=== PATIENT | male | born 1940 | race Caucasian/White ===

== ENCOUNTER → 2016-02-27 | Outpatient (CLI) | payer BC ==
[~2016-02-27] MED LIST: ASPI81TA28 PO; BIMA0.01 OPB; CHOL2000 PO; CIPR-255 PO; CLC100 PO; DTR5 PO; DUTA0.5C PO; MULTTAB58 PO; OXYC7.5T62 PO; TAMS0.4C59 PO
[2016-02-27 19:58] LABS: BASO % 0.2 %; BASO ABS # 0.01 K/uL (0-0.2); COMPLETE YES; EOS % 3.1 %; HEMATOCRIT 36.4 % (42-52); IG% 0.6 %; LYMPH % 32.4 %; LYMPH ABS # 1.56 K/uL (1.2-3.4); MEAN CELL VOLUME 92.6 fL (80-100); MEAN CORPUSCULAR HEMOGLOBIN 32.1 pg (25-34); MEAN CORPUSCULAR HGB CONC 34.6 g/dl (32-36); MEAN PLATELET VOLUME 9.3 fL (7.4-10.4); MONO % 7.3 %; NEUT % 56.4 %; PLATELET COUNT 108 K/uL (130-400); RED BLOOD COUNT 3.93 M/uL (4.7-6.1); WHITE BLOOD COUNT 4.82 K/uL (4.8-10.8)
[2016-02-27 20:06] LABS: ALT/SGPT 67 U/L (12-78); AST/SGOT 36 U/L (15-37); BLOOD UREA NITROGEN 23 mg/dl (7-18); BUN/CREATININE RATIO 22.9 (10-20); CALCIUM 9.1 mg/dl (8.5-10.1); CARBON DIOXIDE 29 mmol/L (21-32); CHLORIDE 100 mmol/L (98-107); GLUCOSE 95 mg/dl (70-99); POTASSIUM 4.4 mmol/L (3.5-5.1); SODIUM 137 mmol/L (136-145)
[2016-02-27 20:10] LABS: ALB/GLOB RATIO 1.1 (0.9-2); ALKALINE PHOSPHATASE 76 U/L (45-117); PROSTATE SPECIFIC ANTIGEN 0.122 ng/ml (0.000-4.000)
--- NOTE | 2016-03-01 11:16 | CODING QUERY NO DIAGNOSIS ---
: 1940 TREATMENT RENDERED WITHOUT A DIAGNOSIS To promote full compliance with coding requirements relating to patient care, physician participation is requested in all cases of label coder uncertainty. Please assist us with providing a diagnosis/symptom for the test(s) below: A diagnosis/symptom was not documented on your Order. A valid diagnosis/symptom is required to bill all insurances. Please remember that we are unable to code a diagnosis of rule out, probable, possible, questionable, or suspected. Tests that require a diagnosis: DOS: 02/27/16 * Erythrocyte Sedimentation Rate DIAGNOSIS: * SANDRA 9 Order Set DIAGNOSIS: * Comprehensive Metabolic Panel DIAGNOSIS: * Prostate Specific Antigen DIAGNOSIS: * CBC With Auto Differential DIAGNOSIS: Provider Signature: Date: Thank you Brie [facility] Information Management Once completed, please kindly fax back to [phone] For questions please call [phone]
[2016-03-05 04:44] LABS: ANTI-CENTROMERE AB <1.0 NEG AI (<1.0 NEG); ANTI-SS-A <1.0 NEG AI (<1.0 NEG); ANTI-SS-B <1.0 NEG AI (<1.0 NEG); DNA ds CRITHIDIA NEGATIVE (NEGATIVE); Sm Antibody <1.0 NEG AI (<1.0 NEG)
--- NOTE | 2016-03-08 11:32 | CODING QUERY MEDICAL NECESSITY ---
SUPPORTING DIAGNOSIS NEEDED Dr. Indira Back, A supporting diagnosis is required for the test/procedure performed on this patient in order for us to be reimbursed by the patient's insurance. Please provide a supporting diagnosis for the following test/procedure listed below next to the test name along with your signature. *If there is no additional diagnosis for this patient that would support the following test/procedure please document that below next to the test/procedure. Test(s)/Procedure(s) that require a supporting diagnosis: * [id number] PSA DIAGNOSIS: DATE OF SERVICE: 02/27/16 Provider Signature: Date: Thank you Mando Bang [facility] Information Management Once completed, please kindly fax back to [phone] For questions please call [phone]
== END | disposition home or self-care (01) ==
LOC: C.LABSPEC 16:16
PROVIDERS: ATTEND Internal Medicine
DX: L30.8 Other specified dermatitis (principal); C61 Malignant neoplasm of prostate

== ENCOUNTER → 2016-04-03 | Outpatient (CLI) | payer BC ==
[~2016-04-03] MED LIST changes: -DUTA0.5C PO; -TAMS0.4C59 PO
== END | disposition home or self-care (01) ==
LOC: C.LABSPEC 12:28
PROVIDERS: ATTEND Internal Medicine
DX: Z12.11 Encounter for screening for malignant neoplasm of colon (principal)

== ENCOUNTER 2016-04-15 06:54 | Inpatient (IN) | payer BC, OTHER ==
[2016-03-31 10:57] VITALS: BMI 27.0
--- NOTE | 2016-03-31 11:33 | PAT Medication Instructions ---
Service Date Mar 31, 2016. Current Home Medication List Aspirin (Aspirin Ec), 81 MG PO HOLD Bimatoprost (Lumigan), 1 DROPS OPB HS Cholecalciferol (Vitamin D3), 1 CAP PO QAM Multiple Vitamin (Multivitamin), 1 TAB PO QAM Medication Instructions For Your Scheduled Surgery - Hold the following medications 7-10 days prior to surgery per surgeon's instructions: Aspirin (Aspirin Ec), 81 MG PO HOLD - Hold the following medications the morning of surgery: Cholecalciferol (Vitamin D3), 1 CAP PO QAM Multiple Vitamin (Multivitamin), 1 TAB PO QAM - Take the following medications as scheduled the night before surgery: Bimatoprost (Lumigan), 1 DROPS OPB HS Nothing to eat or drink after midnight If you have any questions please call us at [phone] or [phone] or [phone]
--- NOTE | 2016-03-31 12:16 | DIAGNOSTIC IMAGING REPORT ---
CHEST 2 VIEWS ROUTINE CLINICAL HISTORY: Preoperative evaluation. COMPARISON STUDY: Chest radiograph September 22, 2015. FINDINGS: A dual lead left subclavian pacemaker is in place. Mild cardiomegaly is unchanged. There is no evidence of pulmonary edema. There is no consolidation to suggest pneumonia. Linear right basilar opacity is suggestive of atelectasis. IMPRESSION: 1. No acute cardiopulmonary findings. 2. Stable mild cardiomegaly. Electronically signed by: Cruzito Miller M.D. 03/31/2016 12:15 PM Dictated Date/Time: 03/31/2016 12:14 PM
[2016-03-31 12:22] LABS: URINE APPEARANCE CLEAR (CLEAR); URINE BILIRUBIN NEG (NEG); URINE COLOR YELLOW; URINE NITRITE NEG (NEG); UROBILINOGEN NEG (NEG)
[2016-03-31 12:23] LABS: BASO % 0.2 %; BASO ABS # 0.01 K/uL (0-0.2); COMPLETE YES; EOS % 3.5 %; HEMATOCRIT 36.5 % (42-52); IG% 0.2 %; LYMPH % 31.2 %; LYMPH ABS # 1.25 K/uL (1.2-3.4); MEAN CELL VOLUME 91.5 fL (80-100); MEAN CORPUSCULAR HEMOGLOBIN 32.1 pg (25-34); MEAN CORPUSCULAR HGB CONC 35.1 g/dl (32-36); MEAN PLATELET VOLUME 8.9 fL (7.4-10.4); MONO % 5.2 %; NEUT % 59.7 %; PLATELET COUNT 104 K/uL (130-400); RED BLOOD COUNT 3.99 M/uL (4.7-6.1); WHITE BLOOD COUNT 4.01 K/uL (4.8-10.8)
[2016-03-31 12:25] LABS: MANUAL MICROSCOPIC REQUIRED? NO; REVIEW REQ? NO
[2016-03-31 12:42] LABS: BUN/CREATININE RATIO 23.1 (10-20); CALCIUM 9.2 mg/dl (8.5-10.1); CREATININE 0.94 mg/dl (0.60-1.40); POTASSIUM 4.3 mmol/L (3.5-5.1)
--- NOTE | 2016-04-08 07:51 | HISTORY & PHYSICAL EXAMINATION ---
DATE OF ADMISSION: 04/15/2016 PREOPERATIVE EVALUATION NOTE A 75-year-old male scheduled to undergo a robotic prostatectomy on 04/15/2016. He has been diagnosed with prostate cancer. His medical problems include: 1. 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 He underwent chemotherapy. The last chemotherapy was administered on 10/31/2013 and he has been in remission. He sees Dr. Jack Mccray. 2. History of second-degree AV block Mobitz II, requiring a permanent pacemaker. This was done in 2005. He had a battery changed on his pacer in [address] Hunt. 3. Degenerative disk disease of the lumbar spine. He did require surgery in the remote past. 4. 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 5. Diagnosis of prostate cancer established on 09/04/2015. He has been on Lupron and he is scheduled for surgery. 6. History of glaucoma. He was treated with Lumigan in the past, but the medication is on hold at the present time. 7. History of basal cell carcinomas. He has had multiple Mohs procedures in the past. CURRENT MEDICATIONS: Include only vitamin D 2000 international units daily. He has had a rash, which has been chronic. He has had multiple dermatology evaluations. He has had a skin biopsy, the etiology of which is not definitely determined. Overall, he has been doing well. Denied any headache or dizziness or lightheadedness. He wears glasses. No chest pain, pressure or tightness. No shortness of breath. No cough. No abdominal pain, no nausea, and no vomiting. No problem with his bowel movements. No melena and no rectal bleeding. He is up at night to urinate on multiple occasions. Denied any swelling in his ankles. PHYSICAL EXAMINATION: GENERAL: Well developed, in no distress. His recorded weight is 85 kg, height 175.3 cm, and BMI 27.7. VITAL SIGNS: Blood pressure 122/70, pulse 60 and regular, and temperature 98.3. SKIN: Warm and dry. He does have an erythematous rash, especially on his back, stable. He also has multiple areas of keratosis. HEENT: He wears glasses. Normal oronasal and pharyngeal mucosa. He does have cerumen accumulation in his external ear canals. He has had prior cataract surgeries. NECK: Supple. Nontender. No adenopathy. No thyromegaly. No JVD. Normal carotid pulses. No carotid bruit. CHEST: Pacemaker in place. HEART: Regular heart sounds. No evident murmur, rub, or gallop. LUNGS: Clear. ABDOMEN: Soft and nontender without organomegaly or masses. BACK: No spinal tenderness. Surgical scar. EXTREMITIES: No edema, clubbing, or cyanosis. Onychomycosis. Absent right dorsalis pedis pulse. The rest of his pedal pulses were normal. NEUROLOGIC: He is alert and oriented. There is no evidence of any deficit. LABORATORY TESTS: WBC count 4010, hemoglobin 12.8, hematocrit 36.5, and platelet count 104,000. Sodium 138, potassium 4.3, chloride 103, CO2 of 27, BUN 22, creatinine 0.94, glucose 96, and calcium 9.2. His urinalysis was completely normal. His electrocardiogram was done at [facility] in [place] on 03/26/2016 and showed a paced rhythm. AV sequential pacemaker. No change compared to prior electrocardiograms. His chest x-ray showed no acute cardiopulmonary findings. He has a stable cardiomegaly. ASSESSMENT: 1. Preoperative evaluation. 2. Carcinoma of the prostate. The patient is scheduled for a prostatectomy on 04/15/2016. 3. History of B-cell chronic small cell leukemia, status post chemotherapy. He is in remission. 4. History of heart block, requiring pacemaker. 5. History of glaucoma. 6. 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 7. Keratosis. 8. History of basal cell carcinoma. 9. Chronic rash. Prior evaluation has been nonrevealing. 10. Thrombocytopenia. Chronic. Still in a safe range. PLAN: 1. All his preoperative tests have been reviewed. 2. He does have mild thrombocytopenia, but his platelet count remains over 100,000. Dr. Mccray is aware of his upcoming surgery. No treatment is needed at this point. 3. Based on his examination and all his laboratory tests, the patient is in a stable medical condition and I do not see any contraindication to his anticipated surgery.
[2016-04-15] VITALS (8 sets, daily range): BP systolic 127–172; BP diastolic 63–81; PULSE 59–69; TEMP 36.4–36.9; O2SAT 95–98; Ht 175.3 cm; Wt 85.0 kg
[~2016-04-15] VITALS: Ht 175.3 cm; Wt 85.0 kg
[~2016-04-15 06:54] MED LIST changes: +CEFAZOLIN 2000 MG/60 ML D5W 60 ML IV SCH; -CIPR-255 PO; -CLC100 PO; -DTR5 PO; +HEPARIN SOD 5000 UNIT/0.5 ML CARP SQ SCH; +LACTATED RINGER'S 1000ML 1,000 ML IV SCH; -OXYC7.5T62 PO
[2016-04-15] MEDS ORDERED: PROPOFOL IV EMULSION 10 MG/ML 20 ML VIAL IV ONE (07:36)
[2016-04-15] MEDS ORDERED: SUCCINYLCHOLINE CHLORIDE 20 MG/ML 10 ML VIAL IV ONE (07:36)
[2016-04-15] MEDS ORDERED: METOCLOPRAMIDE HCL INJ 5 MG/ML 2 ML VIAL ONE (07:36)
[2016-04-15] MEDS ORDERED: RANITIDINE HCL 25 MG/ML INJ ONE (07:36)
[2016-04-15] MEDS ORDERED: LIDOCAINE HCL 2% 2 ML VIAL (20MG/ML) ONE (07:36)
[2016-04-15] MEDS ORDERED: ONDANSETRON INJ 2 MG/ML 2 ML VIAL ONE (07:36)
[2016-04-15] MEDS ORDERED: ROCURONIUM BROMIDE 10 MG/ML 5 ML VIAL ONE ×2 (07:36→10:52)
[2016-04-15] MEDS ORDERED: FENTANYL CITRATE INJ 50 MCG/1 ML 2 ML VIAL ONE (07:36)
[2016-04-15] MEDS ORDERED: DEXAMETHASONE SOD INJ 4 MG/ML VIAL ONE (07:36)
--- NOTE | 2016-04-15 07:46 | History & Physical Bridge Note ---
H&P Re-Evaluation Bridge Note: I have examined the patient, reviewed the History & Physical and in the interval since the performance of the History & Physical I have noted the following changes of clinical significance: No changes noted
[2016-04-15] MEDS ORDERED: MIDAZOLAM HCL 1 MG/ML 2ML VIAL ONE (08:12)
[2016-04-15] MEDS ORDERED: LACTATED RINGER'S 1000ML 1,000 ML IV PRN (08:26)
[2016-04-15] MEDS ORDERED: BUPIVACAINE/EPINEPHRINE 0.5% MPF 1:200,000 30 ML VIAL ONE (08:29)
[2016-04-15] MEDS ORDERED: FENTANYL CITRATE INJ 50 MCG/1 ML 2 ML VIAL IV PRN (08:30)
[2016-04-15] MEDS ORDERED: HYDROmorphone INJ 1 MG/ML SYR IV PRN ×2 (08:30→12:15)
[2016-04-15] MEDS ORDERED: ONDANSETRON INJ 2 MG/ML 2 ML VIAL IV PRN ×2 (08:30→12:15)
[2016-04-15] MEDS ORDERED: MoRPHine SULFATE 2 MG/ML CARP ONE ×3 (08:59→09:35)
[2016-04-15] MEDS ORDERED: LABETALOL HCL IV 5 MG/ML 20ML ONE (09:44)
[2016-04-15] MEDS ORDERED: GLYCOPYRROLATE INJ 0.2 MG/ML VIAL ONE (09:46)
[2016-04-15] MEDS ORDERED: NEOSTIGMINE METHYLSULFATE 5 MG/5 ML SYR ONE (09:46)
[2016-04-15] MEDS ORDERED: METHYLENE BLUE 1% 10 ML VIAL ONE (10:10)
[2016-04-15] MEDS ORDERED: FLOSEAL HEMOSTATIC MATRIX 10ML TOP ONE (11:32)
[2016-04-15] MEDS: LACTATED RINGER'S 1000ML 1,000 ML IV SCH ×2 (12:04→20:49)
[2016-04-15] MEDS ORDERED: OXYBUTYNIN CHLORIDE 5 MG TAB PO PRN (12:15)
[2016-04-15] MEDS ORDERED: KETOROLAC TROMETHAMINE 15 MG/ML VIAL IV PRN (12:15)
[2016-04-15] MEDS ORDERED: OXYCODONE/ACETAMINOPHEN 7.5-325 TAB PO PRN (12:15)
--- NOTE | 2016-04-15 12:23 | [facility] Post Operative Brief Note ---
Immediate Operative Summary Operative Date Apr 15, 2016. Pre-Operative Diagnosis Bebeto 4+3 Prostate Cancer Post-Operative Diagnosis Same as pre-operative Procedure(s) Performed Robotic assisted laparoscopic radical retropubic prostatectomy Surgeon Dr. Zackary Rutledge MD Talent Rep Surgeon(s) Liza Rodriguez, RN, VAPOR COATER Estimated Blood Loss 150 ml Findings Watertight anastomosis Specimens A. Prostate and seminal vessicles B. Periprostatic fat Drains #10 ANA LLQ, 18 fr silicone jennings, 10 cc H2O Anesthesia GAET + local Complication(s) None Disposition Recovery Room / PACU
[2016-04-15 12:36] LABS: HEMATOCRIT 33.8 % (42-52); MEAN CELL VOLUME 91.4 fL (80-100); MEAN CORPUSCULAR HEMOGLOBIN 32.2 pg (25-34); WHITE BLOOD COUNT 5.93 K/uL (4.8-10.8)
[2016-04-15 12:56] LABS: BUN/CREATININE RATIO 15.9 (10-20); CALCIUM 8.3 mg/dl (8.5-10.1); CREATININE 1.2 mg/dl (0.60-1.40); POTASSIUM 3.9 mmol/L (3.5-5.1)
--- NOTE | 2016-04-15 13:08 | Anesthesiology Progress Note ---
Anesthesia Post Op Note Date & Time Apr 15, 2016 at 13:07 Vital Signs Pain Intensity: 1 Vital Signs Past 12 Hours Date Time Temp Pulse Resp B/P Pulse Ox O2 Delivery O2 Flow Rate FiO2 04/15/16 12:50 36.7 60 14 120/61 96 Nasal Cannula 2 04/15/16 12:40 60 14 117/63 97 Nasal Cannula 2 04/15/16 12:30 60 16 123/61 100 Mask 10 04/15/16 12:20 62 16 123/66 100 Mask 10 04/15/16 12:12 37.2 60 16 128/86 98 Mask 10 04/15/16 07:54 36.5 60 18 142/69 95 Room Air Notes Mental Status: alert / awake / arousable, participated in evaluation Pt Amnestic to Procedure: Yes Nausea / Vomiting: adequately controlled Pain: adequately controlled Airway Patency, RR, SpO2: stable & adequate BP & HR: stable & adequate Hydration State: stable & adequate Anesthetic Complications: no major complications apparent Pt doing well.
[2016-04-15 13:09] LABS: MEAN CORPUSCULAR HGB CONC 35.2 g/dl (32-36); MEAN PLATELET VOLUME 8.3 fL (7.4-10.4); PLATELET COUNT 99 K/uL (130-400); PLT ESTIMATE DECREASED
--- NOTE | 2016-04-15 13:24 | OPERATIVE REPORT ---
DATE OF OPERATION: 04/15/2016 PREOPERATIVE DIAGNOSIS: Silas 4+3 prostate cancer. POSTOPERATIVE DIAGNOSIS: Same. PROCEDURE: Robot-assisted laparoscopic radical retropubic prostatectomy, bladder neck reconstructed. SURGEON: Dr. Zackary Rutledge. SAP ANALYST: YAKOV Mckoy. ANESTHESIA: General anesthesia with endotracheal intubation plus local at port sites. ESTIMATED BLOOD LOSS: 150 mL. IV FLUIDS: 1700 mL of crystalloid. DRAINS LEFT IN PLACE: Include a #10 ANA drain in the left lower quadrant and an 18 Tamazight Crump catheter to gravity drainage with 10 mL of sterile water in the balloon, silicone specimens sent to pathology as periprostatic fat, prostate plus seminal vesicles. FINDINGS: Watertight anastomosis with excellent hemostasis and no evidence of rectal injury. COMPLICATIONS: None. BRIEF HISTORY: Mr. Kimble is a pleasant 75-year-old male who I have seen as an outpatient in consultation for management of his Silas 4+3 adenocarcinoma of the prostate. He has undergone biopsy by Dr. Brady demonstrating his diagnosis of malignancy. The patient has received preoperative Lupron and his baseline voiding symptoms and urinary incontinence requiring pad use are noted. Please see H\T\P for further details. After discussion of risks and benefits and various forms of management, he has decided upon a robotic prostatectomy to manage his disease and is being admitted for this purpose. Preoperative cephalosporins and heparin were provided for antibiotic coverage and DVT prophylaxis. SCDs used as well. OPERATION AND FINDINGS: PROCEDURE: The patient was properly identified and brought to the operative suite. After identification and appropriate consent on the chart, general anesthesia with endotracheal intubation was initiated and the patient was prepped and draped in standard fashion for this procedure. time buyer-out procedure was followed. A 12 mm supraumbilical incision was made after induction of local and abdomen was entered under direct visualization using a 12 mm visual obturator. Abdomen was insufflated to 15 mmHg and normal intra-abdominal anatomy was appreciated. Ports were placed for a 4th arm robotic template including 2 left-sided 7 mm ports, 1 right-sided 7 mm robotic port and a 12 and 5 mm multimedia production assistant port. The patient was placed in Trendelenburg and robot was brought in and docked. Scarring within the pelvis from the patient's previous hernia repair was appreciated. Bladder was able to be dropped down to the level of the pubic bone without evidence of bladder injury or perforation. Prostate was defatted. Periprostatic fat was sent for pathologic analysis. The patient was noted to have significantly enlarged prostate consistent with his preoperative transrectal ultrasound findings despite the use of Lupron. Endopelvic fascia was sharply entered on both sides and blunt dissection was carried down to the level of the apex. Dorsal vein complex was skeletonized and controlled using 0 Vicryl suture in a [id number] fashion. A 30-degree down lens was used to place the bladder neck on traction and dissection was carried down until the Crump catheter was encountered in the midline. This was placed within the fourth arm and used for anterior traction. Posterior bladder neck was divided after a lack of a median lobe was ensured. Methylene blue was provided to assist with identification of the ureteral orifices, which were noted to be well removed from the bladder neck dissection and deep within the pelvis. However, due to lateral lobe impingement of the bladder, bladder neck reconstruction was required prior to completion of closure. Bladder was dropped in the posterior plane and dissection was carried out until the vas deferens and seminal vesicles were encountered in the midline. Seminal vesicles were noted to be relatively small. Rectum was dropped using cold scissors down to the level of the apex. The pedicles were skeletonized and controlled using vessel sealer on both sides. On the right side, a rim of tissue was left along the prostate gland due to the Silas 4 disease and the risk of extracapsular extension. On the left hand side, a thorough nerve sparing dissection was carried out. After dissection had been carried out to the level of the apex of the prostate attention was turned to the dorsal vein. Using a 0 degree lens, this was divided using hot scissors and urethra was skeletonized. A relatively vascular rectourethralis fibers were appreciated and divided. Prostate was freed and brought up into the abdominal cavity where it was placed into an EndoCatch bag for retrieval at the end of the case. Attention was turned to the pelvis where excellent hemostasis was appreciated. The pelvis was filled with saline irrigation and rectum was insufflated with no evidence of rectal injury. The bladder neck reconstruction was carried out using a 2-0 Vicryl suture in an interrupted fashion on the lateral aspects for an excellent aperture to the bladder neck. Using a double armed V-Loc suture circumferential running anastomosis was created with the silicone Crump catheter being visualized entering the bladder prior to completion. A 10 mL of sterile water were placed in the balloon and the bladder was tested with greater than 120 mL of irrigant and no evidence of leak. FloSeal tissue sealant was placed for additional hemostasis in the prostatic fossa. The needles were removed, needle and instrument counts were correct. Fourth arm was removed and #10 ANA drain was brought in via the fourth arm port. This was placed within the pelvis while avoiding placing it directly over the anastomosis. Robotic instruments were removed and robot was dedocked. Camera was brought in via the multimedia production assistant port to allow for removal of the strings to the EndoCatch bag via the supraumbilical incision. This was sufficiently enlarged to allow for removal of the specimen. Excess carbon dioxide gas was removed from the abdomen and ports were removed. Supraumbilical incision was closed at the level of fascia using 0 Vicryl suture on a UR-5 needle in a running fashion. A 2-0 silk was used to secure the drain in place and 4-0 Monocryl and Dermabond was used at the level of the skin for completion of the closure. After this was complete, anesthesia was reversed. The patient was transferred to recovery room in stable condition. FOLLOW-UP CARE: The patient will be admitted to the floor for standard postoperative management. I attest to the content of the Intraoperative Record and any orders documented therein. Any exceptio ns are noted below.
[2016-04-15 15:10] LABS: INR 1.1 (0.9-1.1); PROTHROMBIN TIME (PATIENT) 11.5 SECONDS (9.0-12.0)
[2016-04-15] MEDS: CEFAZOLIN IV 2,000 MG in DEXTROSE 5% 50ML 50 ML IV SCH (15:47)
[2016-04-15] MEDS: ACETAMINOPHEN 500 MG TAB PO SCH (17:39)
[2016-04-15] MEDS: HEPARIN SOD 5000 UNIT/0.5 ML CARP SQ SCH (18:53)
[2016-04-15] MEDS: DOCUSATE SODIUM 100 MG CAP PO SCH (20:48)
[2016-04-15] MEDS ORDERED: BIMATOPROST 0.01% OP SOLN 2.5 ML BTL OPB SCH (21:00)
[2016-04-16] MEDS: ACETAMINOPHEN 500 MG TAB PO SCH ×3 (00:19→12:00)
[2016-04-16] MEDS: CEFAZOLIN IV 2,000 MG in DEXTROSE 5% 50ML 50 ML IV SCH ×2 (00:19→09:28)
[2016-04-16 04:06] VITALS: BP 122/61; PULSE 60; TEMP 36.7; O2SAT 93
[2016-04-16] MEDS: LACTATED RINGER'S 1000ML 1,000 ML IV SCH (05:39)
[2016-04-16 07:45] VITALS: BP 145/71; PULSE 60; TEMP 36.8; O2SAT 93
[2016-04-16 07:59] LABS: HEMATOCRIT 28.5 % (42-52); MEAN CELL VOLUME 89.3 fL (80-100); MEAN CORPUSCULAR HEMOGLOBIN 32.3 pg (25-34); MEAN CORPUSCULAR HGB CONC 36.1 g/dl (32-36); RED BLOOD COUNT 3.19 M/uL (4.7-6.1); WHITE BLOOD COUNT 6.22 K/uL (4.8-10.8)
[2016-04-16 08:31] LABS: MEAN PLATELET VOLUME 8.5 fL (7.4-10.4); PLATELET COUNT 95 K/uL (130-400)
[2016-04-16 08:35] LABS: BUN/CREATININE RATIO 14.6 (10-20); CALCIUM 8.5 mg/dl (8.5-10.1); CREATININE 0.98 mg/dl (0.60-1.40); POTASSIUM 3.9 mmol/L (3.5-5.1)
[2016-04-16 08:47] LABS: COMPLETE YES; EOS % 0.5 %; IG% 0.3 %; LYMPH % 22.8 %; LYMPH ABS # 1.42 K/uL (1.2-3.4); MONO % 5.8 %; NEUT % 70.6 %
--- NOTE | 2016-04-16 08:57 | Progress Note ---
Subjective Date of Service: Apr 16, 2016. Subjective Pt evaluation today including: conversation w/ patient, physical exam, chart review, lab review Voiding: jennings catheter in place 75 year old POD#1 RALP Doing okay Minimal pain Tolerating clears. Ambulating and passing flatus. Jennings intact draining clear yellow urine. Abd slighlty distended- incisions intact. ANA drain intact with small amount of serosang drainage. IVF infusing. AFVSS, Labs unremarkable. Review of Systems Constitutional: No chills, No fever Eyes: No worsening of vision ENT: No hearing loss Respiratory: No cough, No shortness of breath Cardiac: No chest pain Abdomen: + pain, + see HPI, No nausea, No vomiting Male : + see HPI Neurologic: No memory loss Psychiatric: No depression symptoms Heme: No abnormal bleeding/bruising Endo: No fatigue Skin: No rash Objective Vital Signs Date Time Temp Pulse Resp B/P Pulse Ox O2 Delivery O2 Flow Rate FiO2 04/16/16 07:22 Room Air 04/16/16 04:06 36.7 60 17 122/61 93 Room Air 04/16/16 00:20 Room Air 04/15/16 23:27 36.9 59 18 130/68 95 Room Air 04/15/16 20:12 36.5 60 16 127/63 95 Room Air 04/15/16 16:44 36.5 60 17 153/64 97 Nasal Cannula 2.0 04/15/16 15:59 Nasal Cannula 2.0 04/15/16 15:41 36.4 69 16 172/81 96 Nasal Cannula 2.0 04/15/16 14:40 60 16 162/69 98 2.0 04/15/16 14:10 60 16 138/78 97 2.0 04/15/16 13:40 36.6 60 16 150/75 97 Nasal Cannula 2.0 04/15/16 13:40 36.6 60 16 150/75 96 2.0 04/15/16 13:40 Room Air 04/15/16 13:40 Nasal Cannula 2.0 04/15/16 13:20 60 12 124/62 96 Nasal Cannula 2 04/15/16 13:10 60 12 125/65 96 Nasal Cannula 2 04/15/16 13:00 60 12 116/64 95 Nasal Cannula 2 04/15/16 12:50 36.7 60 14 120/61 96 Nasal Cannula 2 04/15/16 12:40 60 14 117/63 97 Nasal Cannula 2 04/15/16 12:30 60 16 123/61 100 Mask 10 04/15/16 12:20 62 16 123/66 100 Mask 10 04/15/16 12:12 37.2 60 16 128/86 98 Mask 10 Physical Exam General Appearance: WD/WN, no apparent distress ENT: hearing grossly normal Neck: no JVD Respiratory/Chest: no respiratory distress, no accessory muscle use Abdomen: + tenderness (abd is tender upon palpation- normal for post op robotic surgery.) Extremities: normal range of motion, non-tender, normal inspection, no pedal edema, no calf tenderness Neurologic/Psychiatric: alert, normal mood/affect, oriented x 3 Skin: normal color, warm/dry, no rash Laboratory Results Last 24 Hours Test 04/15/16 12:28 04/15/16 14:45 04/16/16 07:21 White Blood Count 5.93 K/uL 6.22 K/uL Red Blood Count 3.70 M/uL 3.19 M/uL Hemoglobin 11.9 g/dL 10.3 g/dL Hematocrit 33.8 % 28.5 % Mean Corpuscular Volume 91.4 fL 89.3 fL Mean Corpuscular Hemoglobin 32.2 pg 32.3 pg Mean Corpuscular Hemoglobin Concent 35.2 g/dl 36.1 g/dl RDW Standard Deviation 41.8 fL 40.0 fL RDW Coefficient of Variation 12.4 % 12.4 % Platelet Count 99 K/uL 95 K/uL Mean Platelet Volume 8.3 fL 8.5 fL Platelet Estimate DECREASED Sodium Level 139 mmol/L 142 mmol/L Potassium Level 3.9 mmol/L 3.9 mmol/L Chloride Level 104 mmol/L 106 mmol/L Carbon Dioxide Level 25 mmol/L 27 mmol/L Anion Gap 10.0 mmol/L 9.0 mmol/L Blood Urea Nitrogen 19 mg/dl 14 mg/dl Creatinine 1.20 mg/dl 0.98 mg/dl Est Creatinine Clear Calc Drug Dose 56.6 ml/min 69.3 ml/min Estimated GFR () 67.7 86.5 Estimated GFR (Non- 58.4 74.6 BUN/Creatinine Ratio 15.9 14.6 Random Glucose 168 mg/dl 100 mg/dl Calcium Level 8.3 mg/dl 8.5 mg/dl Prothrombin Time 11.5 SECONDS Prothromb Time International Ratio 1.1 Neutrophils (%) (Auto) 70.6 % Lymphocytes (%) (Auto) 22.8 % Monocytes (%) (Auto) 5.8 % Eosinophils (%) (Auto) 0.5 % Basophils (%) (Auto) 0.0 % Neutrophils # (Auto) 4.39 K/uL Lymphocytes # (Auto) 1.42 K/uL Monocytes # (Auto) 0.36 K/uL Eosinophils # (Auto) 0.03 K/uL Basophils # (Auto) 0.00 K/uL Immature Granulocyte % (Auto) 0.3 % Immature Granulocyte # (Auto) 0.02 K/uL Assessment and Plan s/p RALP Pt doing well. Increase diet as tolerated. Ok to discharge home after lunch if tolerating diet and pain. May d/c ANA drain and IVF after lunch if tolerating diet. Encourage ambulation. Jennings cath care teaching. rx on chart for Cipro, oxybutynin for bladder spasms, colace and percocet.
[2016-04-16] MEDS ORDERED: CHOLECALCIFEROL 1000 INTER.UNIT TAB PO SCH (09:00)
[2016-04-16] MEDS ORDERED: ASPIRIN 81 MG ECTAB PO SCH (09:00)
[2016-04-16] MEDS ORDERED: DTR5 PO (09:01)
[2016-04-16] MEDS ORDERED: CIPR-255 PO (09:01)
[2016-04-16] MEDS ORDERED: CLC100 PO (09:01)
[2016-04-16] MEDS ORDERED: OXYC7.5T62 PO (09:01)
--- NOTE | 2016-04-16 09:09 | Discharge Instructions ---
Discharge Instructions Admission Reason for Admission: Prostate Cancer Discharge Discharge Diagnosis / Problem: Prostate Cancer Discharge Goals Goal(s): Improve function, Improve disease control, Prevent Disease Progression Activity Recommendations Activity Limitations: per Instructions/Follow-up section . Instructions / Follow-Up Instructions / Follow-Up 1. Do not lift >15lbs x 6 weeks. 2. No heavy exercise x 6 weeks. You may engage in light activity such as walking and stairs as tolerated. 3. No sexual intercourse until cleared by Dr. Rutledge or Dr. Liao. 4. Do not drive x [address] while taking narcotics. 5. Finish all of the antibiotic you have been prescribed. 6. Immediately call our office at [phone] if your catheter is removed for any reason. 7. Follow-up as scheduled. Please call our office at [phone] if you need to reschedule for any reason. . Current Hospital Diet Hospital Diet(s): Regular Diet Discharge Diet Recommended Diet: Regular Diet Procedures Procedures Performed: Robotic assisted laparoscopic radical retropubic prostatectomy Pending Studies Studies pending at discharge: no Medical Emergencies . Who to Call and When: Medical Emergencies: If at any time you feel your situation is an emergency, please call 911 immediately. . Non-Emergent Contact Non-Emergency issues call your: Primary Care Provider, Urologist Call Non-Emergent contact if: temperature is above 101.5 . . "Provider Documentation" section prepared by Penelope Banda. VTE Core Measure Inpt VTE Proph given/why not?: Unfractionated heparin SQ, SCD's
[2016-04-16] MEDS: DOCUSATE SODIUM 100 MG CAP PO SCH (09:19)
[2016-04-16] MEDS: HEPARIN SOD 5000 UNIT/0.5 ML CARP SQ SCH (09:28)
[2016-04-16 10:00] VITALS: O2SAT 93
[2016-04-16 11:56] VITALS: BP 149/76; PULSE 65; TEMP 36.6; O2SAT 93
--- NOTE | 2016-04-16 13:41 | Anesthesiology Progress Note ---
Anesthesia Post Op Note Date & Time Apr 16, 2016 at 13:40 Vital Signs Pain Intensity: 0.0 Vital Signs Past 12 Hours Date Time Temp Pulse Resp B/P Pulse Ox O2 Delivery O2 Flow Rate FiO2 04/16/16 11:56 36.6 65 20 149/76 93 Room Air 04/16/16 10:00 93 Room Air 04/16/16 07:45 36.8 60 18 145/71 93 Room Air 04/16/16 07:45 36.8 60 18 145/71 93 Room Air 04/16/16 07:22 Room Air 04/16/16 04:06 36.7 60 17 122/61 93 Room Air Notes Mental Status: alert / awake / arousable, participated in evaluation Pt Amnestic to Procedure: Yes Nausea / Vomiting: adequately controlled Pain: adequately controlled Airway Patency, RR, SpO2: stable & adequate BP & HR: stable & adequate Hydration State: stable & adequate Anesthetic Complications: no major complications apparent
[2016-04-16 13:47] VITALS: BP 149/76; PULSE 65; TEMP 36.6; O2SAT 93
--- NOTE | 2016-05-04 15:18 | DISCHARGE SUMMARY ---
ADMITTING DIAGNOSIS: Prostate cancer. DISCHARGE DIAGNOSIS: Same. ADMITTING ATTENDING: Dr. Zackary Rutledge. COMPLICATIONS: None. PROCEDURE OVER THE COURSE OF ADMISSION: Include a robotic prostatectomy on the 04/15/2016. BRIEF HISTORY: Mr. Kimble is a pleasant 75-year-old male who I have seen as an outpatient for history of an elevated PSA and prostate cancer on prostate biopsy by Dr. Brady. Please see H\T\P for further details. He is being admitted to the hospital for robotic prostatectomy to manage his disease. HOSPITAL COURSE: The patient was admitted to the hospital after uncomplicated robotic prostatectomy as planned. Please see operative report for further details. Over the course of this admission, diet and activity were rapidly advanced. By postoperative day #1, he was tolerating a regular diet, ambulatory in the hallway and considered stable overall for discharge home. Please see progress notes for further details. DISCHARGE INSTRUCTIONS: See discharge instruction sheet and medication list for further details. Outpatient trial of void and postoperative visit for pathology discussion are confirmed. The patient is instructed to contact our service should he note any fevers, chills, nausea, vomiting or other significant difficulties in the postoperative period.
== END 2016-04-16 14:49 | disposition home or self-care (01) | DRG 707 ==
LOC: ENRESERVTM → ENRESERVDT → C.ACU 06:54 → C.MSN 13:51
PROVIDERS: ADMIT Urology; ATTEND Urology
PROC: 8E0W4CZ Robotic Assisted Procedure of Trunk Region, Percutaneous Endoscopic Approach (ICD-10-PCS; principal; 2016-04-15 09:00)
PROC: 0VT04ZZ Resection of Prostate, Percutaneous Endoscopic Approach (ICD-10-PCS; principal; 2016-04-15 09:00)
PROC: 0VT34ZZ Resection of Bilateral Seminal Vesicles, Percutaneous Endoscopic Approach (ICD-10-PCS; principal; 2016-04-15 09:00)
DX: C61 Malignant neoplasm of prostate (principal); C95.91 Leukemia, unspecified, in remission; D69.6 Thrombocytopenia, unspecified; M51.36 Other intervertebral disc degeneration, lumbar region; H40.9 Unspecified glaucoma; Z85.828 Personal history of other malignant neoplasm of skin; Z79.899 Other long term (current) drug therapy

== ENCOUNTER → 2016-05-10 | Outpatient (CLI) | payer BC ==
[~2016-05-10] MED LIST changes: -CEFAZOLIN 2000 MG/60 ML D5W 60 ML IV SCH; +CIPR-255 PO; +CLC100 PO; +DTR5 PO; -HEPARIN SOD 5000 UNIT/0.5 ML CARP SQ SCH; -LACTATED RINGER'S 1000ML 1,000 ML IV SCH; +OXYC7.5T62 PO
[2016-05-10 21:07] LABS: LYME DISEASE AB IGG NEG (NEG); LYME DISEASE AB IGM NEG (NEG)
== END | disposition home or self-care (01) ==
LOC: C.LABSPEC 17:36
PROVIDERS: ATTEND Internal Medicine
DX: R21 Rash and other nonspecific skin eruption (principal)

== ENCOUNTER → 2016-07-01 | Outpatient (CLI) | payer BC ==
[2016-07-01 13:42] LABS: BLOOD UREA NITROGEN 20 mg/dl (7-18); BUN/CREATININE RATIO 23.3 (10-20); CREATININE 0.86 mg/dl (0.60-1.40)
[2016-07-01 13:46] LABS: PROSTATE SPECIFIC ANTIGEN < 0.010 ng/ml (0.000-4.000)
== END | disposition home or self-care (01) ==
LOC: C.LAB1850 11:33
PROVIDERS: ATTEND Urology
DX: R35.0 Frequency of micturition (principal)

== ENCOUNTER → 2016-08-06 | Outpatient (CLI) | payer BC | END | disposition home or self-care (01) | LOC: C.RDSM 13:55 | PROVIDERS: ATTEND Orthopaedic Surgery Sports Medicine | DX: M25.511 Pain in right shoulder (principal) ==

== ENCOUNTER → 2016-11-01 | Outpatient (CLI) | payer BC ==
[2016-11-01 15:45] LABS: BLOOD UREA NITROGEN 23 mg/dl (7-18); CREATININE 0.92 mg/dl (0.60-1.40)
[2016-11-01 15:49] LABS: PROSTATE SPECIFIC ANTIGEN < 0.010 ng/ml (0.000-4.000)
== END | disposition home or self-care (01) ==
LOC: C.LAB1850 14:44
PROVIDERS: ATTEND Urology
DX: R35.0 Frequency of micturition (principal)

== ENCOUNTER → 2017-03-09 | Outpatient (CLI) | payer BC ==
--- NOTE | 2017-03-09 11:56 | DIAGNOSTIC IMAGING REPORT ---
HEAD WITHOUT CONTRAST (CT) CLINICAL HISTORY: 76 years-old Male with CLOSED HEAD TRAUMA, HX INTERCEREBRAL BLEED. Acute head injury status post recent fall TECHNIQUE: Multiple axial CT images of the head were obtained without contrast. A dose lowering technique was utilized adhering to the principles of ALARA. CT DOSE: 788.63 mGycm COMPARISON: None. FINDINGS: No acute intracranial hemorrhage, midline shift, intracranial mass, hydrocephalus, territorial ischemia or abnormal extra-axial collection. Mild areas of low-attenuation within the periventricular and subcortical white matter suggests chronic vascular ischemic changes. Prior right calvarial craniotomy. The calvarium is intact. The paranasal sinuses, mastoid air cells, and middle ear cavities are clear. IMPRESSION: 1. No acute intracranial abnormality. 2. Prior right calvarial craniotomy. 3. Mild chronic microvascular ischemic changes. The above report was generated using voice recognition software. It may contain grammatical, syntax or spelling errors. Electronically signed by: Master Warren M.D. 03/09/2017 11:55 AM Dictated Date/Time: 03/09/2017 11:52 AM
== END | disposition home or self-care (01) ==
LOC: C.CTS 11:30
PROVIDERS: ATTEND Internal Medicine
DX: S09.90XA Unspecified injury of head, initial encounter (principal); W19.XXXA Unspecified fall, initial encounter

== ENCOUNTER → 2017-05-06 | Outpatient (CLI) | payer BC | END | disposition home or self-care (01) | LOC: C.LAB1850 11:11 | PROVIDERS: ATTEND Urology | DX: C61 Malignant neoplasm of prostate (principal) ==

== ENCOUNTER 2021-09-04 11:36 | Observation (INO) ==
--- NOTE | 2021-09-04 12:07 | Emergency Department Note ---
Impression & Plan Acquired methemoglobinemia, Hypoxemia, Anemia ED Provider Note NAME: DALIA MARTELL AGE: 81 SEX: M : 1940 ARRIVES VIA: Walk-In INFORMANT: Patient, ED PROVIDER(S): Giuseppe Griffin MD Chief Complaint: Fatigue, low oxygenation HPI: Patient presents due to concern for lower oxygenation levels which is noticed over the last week or sometimes at rest as well as with exertion. Upon presentation today the patient's pulse ox is normal. The patient denies any acute shortness of breath or chest pains. The patient is noted some worsening weakness and fatigue and has had some decreased p.o. intake over the last 3 days. Patient [place] any nausea vomiting or diarrhea. Patient has been following with Dr. Garcia. Patient is not currently on Entresto or metoprolol as they have been monitoring to see whether or not he has below an EF of 35%. Per the patient's at bedside the patient's most recent echo showed an EF of 35 to 40%. Patient's BNP is always been okay and the patient never suffers from PND or orthopnea. Patient reportedly always has normal BNP's. Of note the patient recently was being treated for left ear infection with Bactrim. ROS: See HPI for pertinent positives and negatives. A total of 10 systems were reviewed and otherwise negative. Past medical history: See below Surgical history: See below Social history: See below Physical Exam: GENERAL: NAD, wearing a mask, non-toxic. Wearing glasses. EYE EXAM: Normal conjunctiva. PERRL, no anisocoria and EOM's grossly intact w/o pain. NECK: Supple, no nuchal rigidity, no adenopathy, non-tender. No signs of meningismus. FROM of the neck with good chin to chest and neck extension. No stridor. LUNGS: Clear to auscultation. Normal chest wall mechanics. HEART: NSR, no MRG. ABDOMEN: Abdomen soft, non-tender, normo-active bowel sounds, no masses, no rebound or guarding. BACK: No CVA TTP. SKIN: No rashes and no bruising. UPPER EXTREMITIES: Upper extremities are grossly normal. LOWER EXTREMITIES: Grossly normal, no edema. Negative Homans' sign bilaterally NEURO EXAM: A&O x3, cranial nerves II-XII grossly intact, normal speech, moves all 4 extremities. Differential diagnoses: Infection, dehydration, metabolic abnormality, hypo/hyperglycemia, electrolyte disturbance, anemia, hypoxia, cardiac sources, intracerebral event, toxicologic, neurologic, as well as other pathologies. Course: Patient was seen and evaluated the bedside. Full history physical exam was performed. EKG interpreted by me Reviewed dual paced rhythm, rate of 68, wide QRS, left bundle branch block pattern. Imaging Studies: See Below Cardiac monitoring: An order was placed for continuous cardiac monitoring. The monitor shows a rate of 67 with paced rhythm. MDM: Patient presented due to concern for fatigue with associated intermittent sh ortness of breath and hypoxemia. Blood work was obtained along with an EKG troponin and chest x-ray. The patient's pacemaker was also interrogated. No concerning findings based on [facility] report that was called to nursing. Patient is some leukopenia and chronic and stable anemia hemoglobin 9.9. The patient's platelet count is slightly low 96,000 this is relatively chronic and stable. Patient's kidney function fairly unremarkable. Hyponatremia noted at 132. The patient's troponin and BNP are not elevated. Urinalysis does not show evidence of obvious infection. COVID-negative chest x-ray shows stable cardiomegaly. 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 This was found to be elevated at 5. I did speak with on-call pulmonology Dr. Robertson who stated they would recommended observation treatment and monitoring. I did speak with the on-call hospitalist Dr. Osborne. We discussed that would likely discontinue the offending agents i.e. dapsone and Bactrim if possible and reassess. Patient was admitted to the medicine service. 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 GARCIA MONITORS Prostate cancer Surgical History H/O craniotomy 1993 IN [place] History of Achilles tendon repair Left-2019 History of anesthesia reaction PT NOTED TO HAVE A SMALL MOUTH/ CONCERNED ABOUT INTUBATION History of blepharoplasty BILATERAL History of cataract surgery LEFT History of colonoscopy History of discectomy LUMBAR History of herniorrhaphy History of mandibular surgery CYST ON LOWER JAW REMOVED 03/06/18 (BENIGN) History of oral surgery REMOVAL OF BROKEN TOOTH AND HAD A BONE GRAFT FOR A FUTURE IMPLANT. 07/04/18. ON ABX. History of permanent cardiac pacemaker placement 2006 History of prostatectomy History of tonsillectomy History of tooth extraction Family History Father FHx: lung cancer non-smoker Lung disease Mother Alzheimer disease Amyotrophic lateral sclerosis Other No family history of bleeding disorder Social History Smoking Status: Never smoker Second Hand Exposure: No; Hx Alcohol Use: Yes Alcohol type: wine Alcohol Intake Frequency Comment: 1-2 drinks per month Hx Substance Use: No Preferred Language: Amharic Communication Ability: Effective Visual Impairment: No Limitations Client Partner Required: No Beliefs That Will Affect Care: None Current Living Situation: Spouse current occupational status: retired Feels Safe at Home: Yes Assistive Devices: None Allergies Allergies Allergy/AdvReac Type Severity Reaction Status Date / Time chlorhexidine Allergy Severe skin Verified 09/04/21 17:02 sloughing/JAMILA'S JESE SYNDROME leuprolide Allergy Intermediate LUPUS LIKE Verified 09/04/21 17:02 DERMATITIS zoster vaccine live Allergy Intermediate CONTRAINDIC Verified 09/04/21 17:02 ATED bendamustine AdvReac Mild ANEMIA Verified 09/04/21 17:02 Home Meds Home Medications Medication Instructions Recorded Confirmed hydroxychloroquine 200 mg tablet 200 mg PO HS 04/11/19 09/04/21 (Plaquenil) bimatoprost 0.01 % eye drops 1 drops OPB HS 07/24/19 09/04/21 (Lumigan) cholecalciferol (vitamin D3) 50 50 mcg PO QAM 10/04/20 09/04/21 mcg (2,000 unit) capsule (Vitamin D3) cyanocobalamin (vitamin B-12) 1,000 mcg PO QAM 10/04/20 09/04/21 1,000 mcg tablet (Vitamin B-12) dapsone 25 mg tablet 100 mg PO HS 10/04/20 09/04/21 aspirin 81 mg tablet,delayed 81 mg PO DAILY 09/04/21 09/04/21 release Results & Data (ED) Vital Signs Vital Signs - 24 hr 09/04/21 11:40 09/04/21 12:12 09/04/21 12:22 Temperature 36.8 C Temperature Source Temporal Artery Scan Pulse Rate 74 63 Pulse Rate from SpO2 Sensor Respiratory Rate 18 16 Respiratory Effort / Characteristics Non-Labored Respiratory Depth Normal Blood Pressure 144/71 H 136/66 Blood Pressure Mean 95 89 Pulse Oximetry 91 94 92 Oxygen Delivery Method Room Air Room Air Room Air Sepsis Recent Fever Within 48 Hours No Sepsis New/Unexplained Change in Mental Status N/A Sepsis Action Taken by Nursing No Action Required 09/04/21 13:00 09/04/21 13:01 09/04/21 13:01 Temperature Temperature Source Pulse Rate 62 60 Pulse Rate from SpO2 Sensor Respiratory Rate 20 18 Respiratory Effort / Characteristics Respiratory Depth Blood Pressure 137/63 Blood Pressure Mean 87 Pulse Oximetry 94 94 Oxygen Delivery Method Sepsis Recent Fever Within 48 Hours Sepsis New/Unexplained Change in Mental Status Sepsis Action Taken by Nursing 09/04/21 14:00 09/04/21 14:00 09/04/21 15:00 Temperature Temperature Source Pulse Rate 62 Pulse Rate from SpO2 Sensor Respiratory Rate 20 Respiratory Effort / Characteristics Respiratory Depth Blood Pressure 142/73 H 126/63 Blood Pressure Mean 96 84 Pulse Oximetry 92 Oxygen Delivery Method Sepsis Recent Fever Within 48 Hours Sepsis New/Unexplained Change in Mental Status Sepsis Action Taken by Nursing 09/04/21 15:00 09/04/21 16:00 09/04/21 16:00 Temperature Temperature Source Pulse Rate 60 60 Pulse Rate from SpO2 Sensor 63 61 Respiratory Rate 24 21 Respiratory Effort / Characteristics Respiratory Depth Blood Pressure 144/63 H Blood Pressure Mean 90 Pulse Oximetry 94 94 Oxygen Delivery Method Sepsis Recent Fever Within 48 Hours Sepsis New/Unexplained Change in Mental Status Sepsis Action Taken by Nursing 09/04/21 16:30 09/04/21 17:00 09/04/21 17:30 Temperature Temperature Source Pulse Rate 63 63 60 Pulse Rate from SpO2 Sensor 63 60 61 Respiratory Rate 24 21 25 H Respiratory Effort / Characteristics Respiratory Depth Blood Pressure Blood Pressure Mean Pulse Oximetry 93 95 92 Oxygen Delivery Method Sepsis Recent Fever Within 48 Hours Sepsis New/Unexplained Change in Mental Status Sepsis Action Taken by Nursing 09/04/21 18:00 09/04/21 18:30 Temperature Temperature Source Pulse Rate 60 71 Pulse Rate from SpO2 Sensor 70 Respiratory Rate 19 29 H Respiratory Effort / Characteristics Respiratory Depth Blood Pressure 135/86 Blood Pressure Mean 102 Pulse Oximetry 93 92 Oxygen Delivery Method Room Air Room Air Sepsis Recent Fever Within 48 Hours Sepsis New/Unexplained Change in Mental Status Sepsis Action Taken by Retirement Medications Current Medication List: was personally reviewed by me Laboratory Data Attestation: I reviewed the patient's lab results. Result diagrams: 09/04/21 12:15 09/04/21 12:15 Lab Results 09/04/21 09/04/21 09/04/21 Range/Units 12:15 12:15 12:15 WBC 4.74 L (4.8-10.8) K/ul RBC 2.86 L (4.63-6.08) M/uL Hgb 9.9 L (14.0-18.0) g/dl Hct 30.3 L (40.1-51.0) % MCV 105.9 H (80.0-100.0) fL MCH 34.6 H (25.0-34.0) pg MCHC 32.7 (32.0-36.0) g/dL RDW Std Deviation 55.3 H (36.4-46.3) fL RDW Coeff of [place] 14.1 (11.5-14.5) % Plt Count 96 L (130-400) K/uL MPV 8.7 L (9.4-12.4) fL Immature Gran % (Auto) 0.6 % Neut % (Auto) 65.9 % Lymph % (Auto) 21.3 % [place] % (Auto) 8.4 % Eos % (Auto) 3.6 % Baso % (Auto) 0.2 % Neut # (Auto) 3.12 (1.4-6.5) K/uL Lymph # (Auto) 1.01 L (1.2-3.4) K/uL Cascade # (Auto) 0.40 (0.24-0.82) K/uL Eos # (Auto) 0.17 (0-0.50) K/uL Baso # (Auto) 0.01 (0-0.2) K/uL Immature Gran # (Auto) 0.03 H (0.00-0.02) K/uL PT 11.7 (9.0-12.0) Seconds INR 1.1 (0.9-1.1) Methemoglobin (0.0-1.5) % Sodium 132 L (136-145) mmol/L Potassium 4.4 (3.5-5.1) mmol/L Chloride 100 (98-107) mmol/L Carbon Dioxide 26 (21-32) mmol/L Anion Gap 6 (3-11) BUN 19 (6-23) mg/dl Creatinine 1.29 (0.6-1.4) mg/dl Est Cr Clr Drug Dosing 42.7 ml/min Est GFR ( Amer) 59.4 ml/min Est GFR (Non-Af Amer) 51.3 ml/min BUN/Creatinine Ratio 14.7 (10-20) Glucose 99 (70-99(Fasting)) mg/dl Calcium 9.0 (8.5-10.1) mg/dl Magnesium (1.7-2.4) mg/dl Total Bilirubin 0.8 (0.2-1.0) mg/dl AST 12 L (13-39) U/L ALT 8 (7-52) U/L Alkaline Phosphatase 55 (34-104) U/L Troponin I High Sens (0-20) pg/ml B-Natriuretic Peptide (0-100) pg/ml Total Protein 7.6 (6.0-8.3) gm/dl Albumin 4.1 (3.4-5.0) gm/dl Globulin 3.5 (2.5-4.0) gm/dl Albumin/Globulin Ratio 1.2 (0.9-2) TSH (0.300-4.500) uIu/ml Urine Color Urine Appearance (Clear) Urine pH (4.5-7.5) Ur Specific [place] (1.000-1.030) Urine Protein (Negative) Urine Glucose (UA) (Negative) Urine Ketones (Negative) Urine Blood (Negative) Urine Nitrite (Negative) Urine Bilirubin (Negative) Urine Urobilinogen (Negative) Ur Leukocyte Esterase (Negative) Urine WBC (Auto) (0-5) /hpf Urine RBC (Auto) (0-4) /hpf U Hyaline Cast (Auto) (0-5) /lpf U Epithel Cells (Auto) (0-5) /lpf Urine Bacteria (Auto) (Negative) SARS-CoV-2, RNA, NAAT (NEGATIVE) 09/04/21 09/04/21 09/04/21 Range/Units 12:15 12:15 12:15 WBC (4.8-10.8) K/ul RBC (4.63-6.08) M/uL Hgb (14.0-18.0) g/dl Hct (40.1-51.0) % MCV (80.0-100.0) fL MCH (25.0-34.0) pg MCHC (32.0-36.0) g/dL RDW Std Deviation (36.4-46.3) fL RDW Coeff of Cheyanne (11.5-14.5) % Plt Count (130-400) K/uL MPV (9.4-12.4) fL Immature Gran % (Auto) % Neut % (Auto) % Lymph % (Auto) % Cascade % (Auto) % Eos % (Auto) % Baso % (Auto) % Neut # (Auto) (1.4-6.5) K/uL Lymph # (Auto) (1.2-3.4) K/uL Cascade # (Auto) (0.24-0.82) K/uL Eos # (Auto) (0-0.50) K/uL Baso # (Auto) (0-0.2) K/uL Immature Gran # (Auto) (0.00-0.02) K/uL PT (9.0-12.0) Seconds INR (0.9-1.1) Methemoglobin (0.0-1.5) % Sodium (136-145) mmol/L Potassium (3.5-5.1) mmol/L Chloride (98-107) mmol/L Carbon Dioxide (21-32) mmol/L Anion Gap (3-11) BUN (6-23) mg/dl Creatinine (0.6-1.4) mg/dl Est Cr Clr Drug Dosing ml/min Est GFR ( Amer) ml/min Est GFR (Non-Af Amer) ml/min BUN/Creatinine Ratio (10-20) Glucose (70-99(Fasting)) mg/dl Calcium (8.5-10.1) mg/dl Magnesium 2.0 (1.7-2.4) mg/dl Total Bilirubin (0.2-1.0) mg/dl AST (13-39) U/L ALT (7-52) U/L Alkaline Phosphatase (34-104) U/L Troponin I High Sens 9.2 (0-20) pg/ml B-Natriuretic Peptide 90 (0-100) pg/ml Total Protein (6.0-8.3) gm/dl Albumin (3.4-5.0) gm/dl Globulin (2.5-4.0) gm/dl Albumin/Globulin Ratio (0.9-2) TSH 1.992 (0.300-4.500) uIu/ml Urine Color Urine Appearance (Clear) Urine pH (4.5-7.5) Ur Specific [place] (1.000-1.030) Urine Protein (Negative) Urine Glucose (UA) (Negative) Urine Ketones (Negative) Urine Blood (Negative) Urine Nitrite (Negative) Urine Bilirubin (Negative) Urine Urobilinogen (Negative) Ur Leukocyte Esterase (Negative) Urine WBC (Auto) (0-5) /hpf Urine RBC (Auto) (0-4) /hpf U Hyaline Cast (Auto) (0-5) /lpf U Epithel Cells (Auto) (0-5) /lpf Urine Bacteria (Auto) (Negative) SARS-CoV-2, RNA, NAAT (NEGATIVE) 09/04/21 09/04/21 09/04/21 Range/Units 12:23 13:15 14:25 WBC (4.8-10.8) K/ul RBC (4.63-6.08) M/uL Hgb (14.0-18.0) g/dl Hct (40.1-51.0) % MCV (80.0-100.0) fL MCH (25.0-34.0) pg MCHC (32.0-36.0) g/dL RDW Std Deviation (36.4-46.3) fL RDW Coeff of Cheyanne (11.5-14.5) % Plt Count (130-400) K/uL MPV (9.4-12.4) fL Immature Gran % (Auto) % Neut % (Auto) % Lymph % (Auto) % Cascade % (Auto) % Eos % (Auto) % Baso % (Auto) % Neut # (Auto) (1.4-6.5) K/uL Lymph # (Auto) (1.2-3.4) K/uL Cascade # (Auto) (0.24-0.82) K/uL Eos # (Auto) (0-0.50) K/uL Baso # (Auto) (0-0.2) K/uL Immature Gran # (Auto) (0.00-0.02) K/uL PT (9.0-12.0) Seconds INR (0.9-1.1) Methemoglobin 5.6 H (0.0-1.5) % Sodium (136-145) mmol/L Potassium (3.5-5.1) mmol/L Chloride (98-107) mmol/L Carbon Dioxide (21-32) mmol/L Anion Gap (3-11) BUN (6-23) mg/dl Creatinine (0.6-1.4) mg/dl Est Cr Clr Drug Dosing ml/min Est GFR ( Amer) ml/min Est GFR (Non-Af Amer) ml/min BUN/Creatinine Ratio (10-20) Glucose (70-99(Fasting)) mg/dl Calcium (8.5-10.1) mg/dl Magnesium (1.7-2.4) mg/dl Total Bilirubin (0.2-1.0) mg/dl AST (13-39) U/L ALT (7-52) U/L Alkaline Phosphatase (34-104) U/L Troponin I High Sens (0-20) pg/ml B-Natriuretic Peptide (0-100) pg/ml Total Protein (6.0-8.3) gm/dl Albumin (3.4-5.0) gm/dl Globulin (2.5-4.0) gm/dl Albumin/Globulin Ratio (0.9-2) TSH (0.300-4.500) uIu/ml Urine Color Dark Yellow Urine Appearance Clear (Clear) Urine pH 6.5 (4.5-7.5) Ur Specific [place] 1.022 (1.000-1.030) Urine Protein Trace H (Negative) Urine Glucose (UA) Negative (Negative) Urine Ketones Trace H (Negative) Urine Blood Trace H (Negative) Urine Nitrite Negative (Negative) Urine Bilirubin Negative (Negative) Urine Urobilinogen Negative (Negative) Ur Leukocyte Esterase Negative (Negative) Urine WBC (Auto) 1-5 (0-5) /hpf Urine RBC (Auto) 10-30 H (0-4) /hpf U Hyaline Cast (Auto) 1-5 (0-5) /lpf U Epithel Cells (Auto) 5-10 H (0-5) /lpf Urine Bacteria (Auto) Negative (Negative) SARS-CoV-2, RNA, NAAT NEGATIVE (NEGATIVE) Imaging Data Radiologist's Impression: Chest X-Ray 09/04/21 12:19 XR chest 1V portable CLINICAL HISTORY: weakness TECHNIQUE: Single frontal radiograph of the chest was obtained. Comparison: Comparison is made to chest radiograph 10/16/2020 FINDINGS: Dual lead pacemaker is seen. Cardiomegaly is noted. The lungs are clear although the left lung base is not entirely evaluated within the field of view. No evidence of pleural effusion or pneumothorax. IMPRESSION: Stable cardiomegaly without evidence of acute chest disease ACT 112: Negative or not required by law. Electronically signed by: Adrien Hunter M.D. 09/04/2021 3:11 PM Discharge Plan Visit Data Chief Complaint: Illness Stated Complaint: FATIGUED, OXYGEN LEVELS LOW, HEART FAILURE ED Provider: Giuseppe Griffin Discharge Problem: Acquired methemoglobinemia, Hypoxemia, Anemia Patient Disposition: Admitted As Inpatient Forms Stand Alone Forms: [facility] Prescriptions Prescriptions: No Action hydroxychloroquine [Plaquenil] 200 mg tablet 200 mg PO HS Lumigan 0.01 % drops 1 drops OPB HS aspirin [Aspir-Low] 81 mg Tablet,Delayed Release (Dr/Ec) 81 mg PO DAILY cyanocobalamin (vitamin B-12) [Vitamin B-12] 1,000 mcg Tablet 1,000 mcg PO QAM dapsone 25 mg tablet 100 mg PO HS cholecalciferol (vitamin D3) [Vitamin D3] 50 mcg (2,000 unit) Capsule 50 mcg PO QAM Referrals Referrals: Damon Goldberg MD [Primary Care Provider] -
[2021-09-04 12:41] LABS: Hematocrit (blood only) 30.3 % (40.1-51.0); Hemoglobin 9.9 g/dl (14.0-18.0); White Blood Count 4.74 K/ul (4.8-10.8)
[2021-09-04 12:43] LABS: Albumin Globulin Ratio 1.2 (0.9-2); Albumin Level 4.1 gm/dl (3.4-5.0); BUN Creatinine Ratio 14.7 (10-20); Bilirubin,Total 0.8 mg/dl (0.2-1.0); Creatinine Clr Calc Pharmacy 42.7 ml/min; Est GFR (African American) 59.4 ml/min; Est GFR (Non-African American) 51.3 ml/min; Globulin 3.5 gm/dl (2.5-4.0); Potassium 4.4 mmol/L (3.5-5.1); Total Protein 7.6 gm/dl (6.0-8.3)
[2021-09-04 13:02] LABS: Basophils # (auto) 0.01 K/uL (0-0.2); Basophils % (auto) 0.2 %; Eosinophils # (auto) 0.17 K/uL (0-0.50); Eosinophils % (auto) 3.6 %; Immature Granulocytes # (auto) 0.03 K/uL (0.00-0.02); Immature Granulocytes % (auto) 0.6 %; Lymphocytes # (auto) 1.01 K/uL (1.2-3.4); Lymphocytes % (auto) 21.3 %; Mean Corpuscular Hemoglobin 34.6 pg (25.0-34.0); Mean Corpuscular Hgb Conc 32.7 g/dL (32.0-36.0); Mean Corpuscular Volume 105.9 fL (80.0-100.0); Mean Platelet Volume 8.7 fL (9.4-12.4); Monocytes % (auto) 8.4 %; Neutrophils # (auto) 3.12 K/uL (1.4-6.5); Neutrophils % (auto) 65.9 %; Platelet Count 96 K/uL (130-400); RDW Coefficient of Variation 14.1 % (11.5-14.5); RDW Standard Deviation 55.3 fL (36.4-46.3); Red Blood Count 2.86 M/uL (4.63-6.08)
[2021-09-04 13:09] LABS: INR 1.1 (0.9-1.1); Prothrombin Time 11.7 Seconds (9.0-12.0)
[2021-09-04 13:21] LABS: Troponin I High Sensitivity 9.2 pg/ml (0-20)
--- NOTE | 2021-09-04 13:59 | Electrocardiogram Report ---
Test Reason : Blood Pressure : / mmHG Vent. Rate : 068 BPM Atrial Rate : 068 BPM P-R Int : 194 ms QRS Dur : 204 ms QT Int : 472 ms P-R-T Axes : 063 -71 108 degrees QTc Int : 501 ms AV dual-paced rhythm Abnormal ECG When compared with ECG of 04-OCT-2020 07:05, Vent. rate has increased BY 7 BPM Confirmed by Ej Montanez ([id number]) on 09/04/2021 1:59:06 PM Referred By: REFERRED SELF Confirmed By:Ej Montanez
[2021-09-04 15:10] LABS: Appearance Urine Clear (Clear); Bacteria Urine Automated Negative (Negative); Bilirubin Urine Negative (Negative); Blood Urine Trace (Negative); Color Urine Dark Yellow; Glucose Urine UA Negative (Negative); Ketones Urine Trace (Negative); Leukocyte Esterase Urine Negative (Negative); Nitrite Urine Negative (Negative); Protein Urine Trace (Negative); Specific Gravity Urine 1.022 (1.000-1.030); Urobilinogen Urine Negative (Negative); pH Urine 6.5 (4.5-7.5)
--- NOTE | 2021-09-04 15:13 | XRay Report ---
XR chest 1V portable CLINICAL HISTORY: weakness TECHNIQUE: Single frontal radiograph of the chest was obtained. Comparison: Comparison is made to chest radiograph 10/16/2020 FINDINGS: Dual lead pacemaker is seen. Cardiomegaly is noted. The lungs are clear although the left lung base i s not entirely evaluated within the field of view. No evidence of pleural effusion or pneumothorax. IMPRESSION: Stable cardiomegaly without evidence of acute chest disease ACT 112: Negative or not required by law. Electronically signed by: Adrien Hunter M.D. 09/04/2021 3:11 PM
--- NOTE | 2021-09-04 15:43 | History & Physical Report ---
Date of Service September 04, 2021 Assessment & Plan (1) Methemoglobinemia: Plan: Fatigue appears to be multifactorial but acutely related to recent Bactrim use Suspect methemoglobinemia is most likely acute expalnation related to recent Bactrim use with his dapsone. Previously tolerated Bactrim but this was prior to him using dapsone. Stop Bactrim Continue dapsone for now - consider dermatology follow up if continues to be a problem Repeat methemoglobinemia level in AM - as long as improving and patient asymptomatic or improving symptoms he can like be discharged (2) Fatigue: Plan: Suspect methemoglobinemia in setting of already known anemia However given size of heart on CXR and significant history of autoimmune disease will also get a limited TTE to assess for pericardial effusion (3) Pancytopenia: Plan: Cell lines mostly at baseline. Under hematology. Patient declines further inpatient workup which I think is reasonable as although contributing towards recent symptoms unlikely to be the exacerbating event. 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 Responded to Rituximab. 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 No acute issues. 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 He reports symptoms ongoing for 2 days with fatigue and shortness of breath on exertion with intermittent hypoxia on home O2 monitor. O2 sats 85% at home - he has been intermittently measuring his home O2 sats after seeing his tool technician one month ago and it was a bit low in the office around 90%. Prior to 2 days ago however he was asymptomatic and very active gardening. His symptoms correlate to him starting Bactrim 2 days ago for cellulitis of his left pinna. Reportedly he had a bad infection here in 2019 and required multiple weeks of antibiotics and tolerated Bactrim well at that time. However he also was not on dapsone then. 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 This was treated by his washer off with a 14 day taper of prednisone. In the ER pancytopenia is mostly at his baseline. However methemoglobin level was mildly elevated at 5.6%. He is not currently hypoxic at rest. He was referred to medicine for admission and ongoing management of hypoxemia on exertion. Allergies Allergy/AdvReac Type Severity Reaction Status Date / Time chlorhexidine Allergy Severe skin Verified 09/04/21 17:02 sloughing/JAMILA'S JESE SYNDROME leuprolide Allergy Intermediate LUPUS LIKE Verified 09/04/21 17:02 DERMATITIS zoster vaccine live Allergy Intermediate CONTRAINDIC Verified 09/04/21 17:02 ATED bendamustine AdvReac Mild ANEMIA Verified 09/04/21 17:02 Home Medications Medication Instructions Recorded Confirmed Type hydroxychloroquine 200 mg tablet 200 mg PO HS 04/11/19 09/04/21 History (Plaquenil) bimatoprost 0.01 % eye drops 1 drops OPB HS 07/24/19 09/04/21 History (Lumigan) cholecalciferol (vitamin D3) 50 50 mcg PO QAM 10/04/20 09/04/21 History mcg (2,000 unit) capsule (Vitamin D3) cyanocobalamin (vitamin B-12) 1,000 mcg PO QAM 10/04/20 09/04/21 History 1,000 mcg tablet (Vitamin B-12) dapsone 25 mg tablet 100 mg PO HS 10/04/20 09/04/21 History aspirin 81 mg tablet,delayed 81 mg PO DAILY 09/04/21 09/04/21 History release Past Med/Surg History Medical History (Updated 09/05/21 @ 07:08 by Florencio Osborne MD) Anemia AVM (arteriovenous malformation) brain 1994 SURGERY [place] [facility] BPH (benign prostatic hyperplasia) Glaucoma BEING MONITORED Irregular heart beat Leukemia CLL>CHEMO IN THE PAST (BEING MONITORED CURRENTLY) PROSTATE CANCER SKIN CANCER Pacemaker 2005 DR. GARCIA MONITORS Prostate cancer Surgical History H/O craniotomy 1994 IN [place] History of Achilles tendon repair Left-2019 History of anesthesia reaction PT NOTED TO HAVE A SMALL MOUTH/ CONCERNED ABOUT INTUBATION History of blepharoplasty BILATERAL History of cataract surgery LEFT History of colonoscopy History of discectomy LUMBAR History of herniorrhaphy History of mandibular surgery CYST ON LOWER JAW REMOVED 03/06/18 (BENIGN) History of oral surgery REMOVAL OF BROKEN TOOTH AND HAD A BONE GRAFT FOR A FUTURE IMPLANT. 07/04/18. ON ABX. History of permanent cardiac pacemaker placement 2005 History of prostatectomy History of tonsillectomy History of tooth extraction Family History Father FHx: lung cancer non-smoker Lung disease Mother Alzheimer disease Amyotrophic lateral sclerosis Other No family history of bleeding disorder Social History Smoking Status: Never smoker Second Hand Exposure: No; Do You Dip or Chew Tobacco: No; Hx Alcohol Use: Yes Alcohol type: beer, wine and hard liquor Alcohol Intake Frequency Comment: 1-2 drinks per month Hx Substance Use: No Preferred Language: Pashto Communication Ability: Effective Visual Impairment: No Limitations Psychologist Experimental Required: No Beliefs That Will Affect Care: None Current Living Situation: Spouse current occupational status: retired Other Information That Helps Us Care for You: No Feels Safe at Home: Yes Safety Concerns: Feels Safe At This Time Assistive Devices: Glasses Review of Systems Review of Systems: All systems reviewed & are unremarkable except as noted in HPI & below Physical Exam Constitutional: WD/WN, vitals as above Eyes: + anicteric sclerae; normal pupil size ENMT: Ears: no external ear abnormality (no current cellulitis) and no TM abnormality (left ear) Neck: trachea midline, no thyromegaly Respiratory: normal respiratory effort, lungs clear to auscultation Cardiovascular: RRR, no murmur, no edema Gastrointestinal (Abdomen): normal bowel sounds, soft, nontender, no hepatosplenomegaly Musculoskeletal: no cyanosis or clubbing, extremities motor strength 5/5 Skin: no rashes, warm and dry Psychiatric: A+Ox3, euthymic affect Results & Data Results & Data ([facility]) Vital Signs (Past 12 Hours) Vital Signs Temp Pulse Resp BP Pulse Ox O2 Del Method 09/04/21 15:00 60 24 94 09/04/21 15:00 126/63 09/04/21 14:00 62 20 92 09/04/21 14:00 142/73 H 09/04/21 13:01 60 18 94 09/04/21 13:01 137/63 09/04/21 13:00 62 20 94 09/04/21 12:22 92 Room Air 09/04/21 12:12 63 16 136/66 94 Room Air 09/04/21 11:40 36.8 C 74 18 144/71 H 91 Room Air Laboratory Results Abnormal lab results 09/04/21 09/04/21 09/04/21 Range/Units 12:15 12:15 13:15 WBC 4.74 L (4.8-10.8) K/ul RBC 2.86 L (4.63-6.08) M/uL Hgb 9.9 L (14.0-18.0) g/dl Hct 30.3 L (40.1-51.0) % MCV 105.9 H (80.0-100.0) fL MCH 34.6 H (25.0-34.0) pg RDW Std Deviation 55.3 H (36.4-46.3) fL Plt Count 96 L (130-400) K/uL MPV 8.7 L (9.4-12.4) fL Lymph # (Auto) 1.01 L (1.2-3.4) K/uL Immature Gran # (Auto) 0.03 H (0.00-0.02) K/uL Methemoglobin 5.6 H (0.0-1.5) % Sodium 132 L (136-145) mmol/L AST 12 L (13-39) U/L Urine Protein (Negative) Urine Ketones (Negative) Urine Blood (Negative) Urine RBC (Auto) (0-4) /hpf U Epithel Cells (Auto) (0-5) /lpf 09/04/21 Range/Units 14:25 WBC (4.8-10.8) K/ul RBC (4.63-6.08) M/uL Hgb (14.0-18.0) g/dl Hct (40.1-51.0) % MCV (80.0-100.0) fL MCH (25.0-34.0) pg RDW Std Deviation (36.4-46.3) fL Plt Count (130-400) K/uL MPV (9.4-12.4) fL Lymph # (Auto) (1.2-3.4) K/uL Immature Gran # (Auto) (0.00-0.02) K/uL Methemoglobin (0.0-1.5) % Sodium (136-145) mmol/L AST (13-39) U/L Urine Protein Trace H (Negative) Urine Ketones Trace H (Negative) Urine Blood Trace H (Negative) Urine RBC (Auto) 10-30 H (0-4) /hpf U Epithel Cells (Auto) 5-10 H (0-5) /lpf Diagnostic Findings XR chest 1V portable CLINICAL HISTORY: weakness TECHNIQUE: Single frontal radiograph of the chest was obtained. Comparison: Comparison is made to chest radiograph 10/16/2020 FINDINGS: Dual lead pacemaker is seen. Cardiomegaly is noted. The lungs are clear although the left lung base is not entirely evaluated within the field of view. No evidence of pleural effusion or pneumothorax. IMPRESSION: Stable cardiomegaly without evidence of acute chest disease Medications Administered ER Medications Given: None ECG Indication: SOB/dyspnea Rate (beats per minute): 68 Findings: + paced rhythm (AV dual paced rhythm) Comparison ECG Date: from (October 04, 2020) Change: no significant change Code Status & VTE Plan Code Status DNR/DNI VTE Prophylaxis Plan VTE Prophylaxis will be ordered: Yes PG Care Time/CCT Total # of Minutes Spent Total Time Spent with Patient: Total time spent is greater than 50% in coordination of care (as documented) at patient's floor/unit and/or counseling patient: Coding Level of Care Code INT OBSERVATION CARE 70M LVL 3 Diagnoses Methemoglobinemia D74.9 Fatigue R53.83 Pancytopenia D61.818 Leukemia C95.90 Prostate cancer C61 Sweets syndrome L98.2 Third degree AV block I44.2 Glaucoma H40.9 Raynauds phenomenon I73.00 Seronegative arthritis M13.80
[2021-09-04] MEDS ORDERED: DAPSONE 25 MG TAB PO SCH (21:51)
[2021-09-04] MEDS ORDERED: ACETAMINOPHEN 325 MG TAB PO PRN (21:51)
[2021-09-04] MEDS ORDERED: HYDROXYCHLOROQUINE SULFATE 200 MG TAB PO SCH (21:51)
[2021-09-04] MEDS ORDERED: ONDANSETRON INJ 2 MG/ML 2 ML VIAL IV PRN (21:51)
[2021-09-05] MEDS: CHOLECALCIFEROL 1,000 UNITS 25 MCG TAB PO SCH (09:36)
[2021-09-05] MEDS: ASPIRIN 81 MG ECTAB PO SCH (09:36)
[2021-09-05] MEDS: CYANOCOBALAMIN (B-12) 500 MCG TABLET PO SCH (09:36)
[2021-09-05 10:19] LABS: Basophils # (auto) 0.01 K/uL (0-0.2); Basophils % (auto) 0.2 %; Eosinophils # (auto) 0.17 K/uL (0-0.50); Eosinophils % (auto) 3.9 %; Hematocrit (blood only) 31.7 % (40.1-51.0); Hemoglobin 10.4 g/dl (14.0-18.0); Immature Granulocytes # (auto) 0.05 K/uL (0.00-0.02); Immature Granulocytes % (auto) 1.1 %; Lymphocytes # (auto) 0.95 K/uL (1.2-3.4); Lymphocytes % (auto) 21.6 %; Mean Corpuscular Hemoglobin 34.9 pg (25.0-34.0); Mean Corpuscular Hgb Conc 32.8 g/dL (32.0-36.0); Mean Corpuscular Volume 106.4 fL (80.0-100.0); Mean Platelet Volume 9.2 fL (9.4-12.4); Monocytes # (auto) 0.37 K/uL (0.24-0.82); Monocytes % (auto) 8.4 %; Neutrophils # (auto) 2.84 K/uL (1.4-6.5); Neutrophils % (auto) 64.8 %; Platelet Count 78 K/uL (130-400); RDW Coefficient of Variation 14.3 % (11.5-14.5); Red Blood Count 2.98 M/uL (4.63-6.08); White Blood Count 4.39 K/ul (4.8-10.8)
[2021-09-05 10:53] LABS: BUN Creatinine Ratio 15.7 (10-20); Calcium 9.2 mg/dl (8.5-10.1); Est GFR (African American) 73.7 ml/min; Est GFR (Non-African American) 63.6 ml/min; Potassium 4.3 mmol/L (3.5-5.1)
[2021-09-05 11:23] LABS: Folate (Folic Acid) 12.15 ng/ml (>5.38)
--- NOTE | 2021-09-05 14:11 | Hospitalist Progress Note ---
Date of Service September 05, 2021 Assessment & Plan (1) Methemoglobinemia: Plan: Chronic dapsone use, dose recently increased Methemoglobinemia overlapping with recent Bactrim use for ear infection Patient also on hydroxychloroquine No history of G6PD Methemoglobin level less than 30%, 5.7% --> 6.2% Vitamin C therapy not indicated, methylene blue therapy not indicated at this time Did leave message with patient's fork lift technician, has had increasing dapsone dose in addition to Bactrim recently. Suspect will be okay to continue dapsone/hydroxychloroquine at this time but will update recommendations on discussion with outside provider (2) Fatigue: Plan: TTE: LV normal in size, moderate concentric LVH, mid to distal anterior lateral wall mid to distal anterior wall, apex, distal inferior wall and distal septum are hypokinetic. ICD lead in right ventricle. No pericardial effusion. Likely due to methemoglobinemia in setting of Bactrim use Hemoglobin 10.4 MCV 106 B12 and foalte normal. (3) Pancytopenia: Plan: Cell lines mostly at baseline. 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 Responded to Rituximab. (5) Prostate cancer: Plan: s/p surgical resection in 2017 (6) Sweets syndrome: Plan: Also with [facility] dermatology On dapsone, dose recently increased. Reports good clinical benefit since [facility] on this (7) Third degree AV block: Plan: s/p pacemaker - possibly planning on upgrade due to cardiomyopathy per his Echo as above Recommend keeping follow-up appointment with resynchronization as scheduled (8) Glaucoma: Plan: Continue his usual bimatoprost eye drops (9) Raynauds phenomenon: Plan: On no specific medications for this. No acute issues. 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 Reports he feels tired, a little better from prior but not back to baseline. Denies chest pain, chest pressure this morning. Endorses rash, notes Sweet syndrome which is improved since being on dapsone. No fever/chills. Seen with family at bedside, is present and daughter who is a redox specialist for medical education is present at bedside. 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 Review of Systems Review of Systems: All systems reviewed & are unremarkable except as noted in Subjective Physical Exam Physical Exam: General: A&Ox3. NAD. Cooperative. Skin: Scattered nodular reddish nodules present on the arms, face, neck without discharge or purulence HEENT: Atraumatic, normocephalic. Hearing grossly intact Pulm: CTAB A&P. -wheezes, -rales, -rhonchi. Symmetrical chest rise. No increase in work of breathing. No respiratory distress. Cardiac: Regular, no murmur appreciated. Radial pulses intact and symmetrical. Abdominal: Nontender, nondistended, soft. BS present. Results & Data Results & Data ([facility]) Vital Signs (Past 12 Hours) Vital Signs Temp Pulse Resp BP Pulse Ox O2 Del Method 09/05/21 08:02 36.8 C 95 H 20 127/67 92 09/05/21 04:00 37.1 C 61 18 118/65 90 Room Air PG Care Time/CCT Total # of Minutes Spent Total Time Spent with Patient: Total time spent is greater than 50% in coordination of care (as documented) at patient's floor/unit and/or counseling patient: Coding Level of Care Code 26770 Subseq Obs Care Lvl 2 Diagnoses Methemoglobinemia D74.9 Fatigue R53.83 Pancytopenia D61.818 Leukemia C95.90 Prostate cancer C61 Sweets syndrome L98.2 Third degree AV block I44.2 Glaucoma H40.9 Raynauds phenomenon I73.00 Seronegative arthritis M13.80
[2021-09-05] MEDS ORDERED: BIMATOPROST 0.01% OP SOLN 2.5 ML BTL OP SCH (21:00)
[2021-09-06 08:40] LABS: Basophils # (auto) 0.01 K/uL (0-0.2); Basophils % (auto) 0.2 %; Eosinophils # (auto) 0.16 K/uL (0-0.50); Hematocrit (blood only) 33.1 % (40.1-51.0); Immature Granulocytes # (auto) 0.05 K/uL (0.00-0.02); Immature Granulocytes % (auto) 1.2 %; Lymphocytes # (auto) 1.01 K/uL (1.2-3.4); Lymphocytes % (auto) 24.9 %; Mean Corpuscular Hemoglobin 34.7 pg (25.0-34.0); Mean Corpuscular Hgb Conc 33.2 g/dL (32.0-36.0); Mean Corpuscular Volume 104.4 fL (80.0-100.0); Mean Platelet Volume 9.1 fL (9.4-12.4); Monocytes # (auto) 0.28 K/uL (0.24-0.82); Monocytes % (auto) 6.9 %; Neutrophils # (auto) 2.54 K/uL (1.4-6.5); Neutrophils % (auto) 62.8 %; Platelet Count 82 K/uL (130-400); RDW Standard Deviation 54.2 fL (36.4-46.3); Red Blood Count 3.17 M/uL (4.63-6.08); White Blood Count 4.05 K/ul (4.8-10.8)
[2021-09-06] MEDS: ASPIRIN 81 MG ECTAB PO SCH (08:51)
[2021-09-06] MEDS: CHOLECALCIFEROL 1,000 UNITS 25 MCG TAB PO SCH (08:51)
[2021-09-06] MEDS: CYANOCOBALAMIN (B-12) 500 MCG TABLET PO SCH (08:51)
[2021-09-06 09:03] LABS: BUN Creatinine Ratio 17.8 (10-20); Calcium 9.3 mg/dl (8.5-10.1); Creatinine Clr Calc Pharmacy 54.2 ml/min; Est GFR (African American) 79.9 ml/min; Est GFR (Non-African American) 68.9 ml/min; Potassium 4.4 mmol/L (3.5-5.1)
--- NOTE | 2021-09-06 11:18 | Discharge Summary ---
Date of Service September 06, 2021 Admission HPI Per Admitting Provider Edilberto Kimble is an 81 year old male who presents to the ER with fatigue and hypoxia. 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 He reports symptoms ongoing for 2 days with fatigue and shortness of breath on exertion with intermittent hypoxia on home O2 monitor. O2 sats 85% at home - he has been intermittently measuring his home O2 sats after seeing his director of residence life one month ago and it was a bit low in the office around 90%. Prior to 2 days ago however he was asymptomatic and very active gardening. His symptoms correlate to him starting Bactrim 2 days ago for cellulitis of his left pinna. Reportedly he had a bad infection here in 2019 and required multiple weeks of antibiotics and tolerated Bactrim well at that time. However he also was not on dapsone then. 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 This was treated by his research rn spec with a 14 day taper of prednisone. In the ER pancytopenia is mostly at his baseline. However methemoglobin level was mildly elevated at 5.6%. He is not currently hypoxic at rest. He was referred to medicine for admission and ongoing management of hypoxemia on exertion. 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 NAD. Cooperative. Skin: Scattered nodular reddish nodules present on the arms, face, neck without discharge or purulence HEENT: Atraumatic, normocephalic. Hearing grossly intact Pulm: CTAB A&P. -wheezes, -rales, -rhonchi. Symmetrical chest rise. No increase in work of breathing. No respiratory distress. Cardiac: Regular, +soft sm. Radial pulses intact and symmetrical. Abdominal: Nontender, nondistended, soft. BS present. Discharge Data Allergies Allergy/AdvReac Type Severity Reaction Status Date / Time chlorhexidine Allergy Severe skin Verified 09/04/21 17:02 sloughing/JAMILA'S JESE SYNDROME leuprolide Allergy Intermediate LUPUS LIKE Verified 09/04/21 17:02 DERMATITIS zoster vaccine live Allergy Intermediate CONTRAINDIC Verified 09/04/21 17:02 ATED bendamustine AdvReac Mild ANEMIA Verified 09/04/21 17:02 sulfamethoxazole AdvReac Verified 09/06/21 11:29 [From Bactrim] trimethoprim [From Bactrim] AdvReac Verified 09/06/21 11:29 Consultations 09/04/21 15:20 ED Decision to Admit Stat Hospital Course (1) Methemoglobinemia: Edilberto is a 81-year-old male with a past medical history of sweet syndrome, cardiomyopathy with reduced ejection fraction previously around 35 to 40% with ICD, paraneoplastic inflammatory arthritis, prior prostate cancer, and prior leukemia status posttreatment who presented with 2 days of fatigue overlapping with initiation of Bactrim treatment for a left ear infection. He was found to have hypermethemoglobinemia less than 10% on admission, Bactrim was held and dapsone subsequently held. Returned to baseline, and methemoglobin levels were downtrending. Was discharged to follow-up with primary care and dermatology. Patient does have a longstanding history of cardiomyopathy and heart failure with ICD, last echo with global hypokinesis EF around 35%. This is not acutely exacerbated, updated echo fatigue showed similar wall motion abnormalities and a EF of 45%. Patient and have had previous conversations about heart failure treatments, potential resynchronization therapy, and overall management of his CHF and would like a second opinion regarding Entresto recommendations. Specifically would like to follow-up as an outpatient with Dr. Kaufman, patient was in his baseline level of health without acute heart failure exacerbation discharge and follow-up referral was placed. To do as outpatient: 1. Hold dapsone for 2 days, may resume 09/08 at half dose of 50 mg for least 1 week. Follow-up with outpatient dermatology for additional adjustments 2. Bactrim discontinued, on clinical exam no residual ear infection and TM normal. Bactrim added to allergy list, would not give this in the future while on dapsone/Plaquenil 3. Follow-up with cardiology for HFrEF, appointment placed for Dr. Kaufman at patient request. Methemoglobinemia Chronic dapsone use, dose recently increased Methemoglobinemia overlapping with recent Bactrim use for ear infection Patient also on hydroxychloroquine No history of G6PD Methemoglobin level less than 30%, 5.7% --> 6.2% --> <5% Vitamin C therapy not indicated, methylene blue therapy not indicated at this time Discussed with patient's infusion therapy nurse. Hold dapsone for 2 days, resume at half dose. (2) Cardiomyopathy: TTE: Grossly normal left ventricle, moderate concentric LVH, lateral wall, anterior wall, apex, distractor lateral wall, and distal septum hypokinesis, normal RV size and function, ICD lead present in the right ventricle, mild aortic valve sclerosis without stenosis, and no pericardial effusion. EF was ~45%, this is slightly improved compared to your prior study in 05/2021 of 35- 40%. Patient on aspirin therapy Has been recommended for already and beta-genny therapy, per patient and have concerns about this and would like to follow-up as outpatient for a second opinion w Dr. Kaufman Cardiac cath 06/2021: Moderate nonobstructive coronary artery disease, false- positive stress test No acute heart failure exacerbation during admission (3) Fatigue: TTE: LV normal in size, moderate concentric LVH, mid to distal anterior lateral wall mid to distal anterior wall, apex, distal inferior wall and distal septum are hypokinetic. ICD lead in right ventricle. No pericardial effusion. Likely due to methemoglobinemia in setting of Bactrim use Hemoglobin 10.4 MCV 106 B12 and foalte normal. (4) Pancytopenia: Cell lines mostly at baseline. 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 Responded to Rituximab. (6) Prostate cancer: s/p surgical resection in 2017 (7) Sweets syndrome: Also with [facility] dermatology On dapsone, dose recently increased. Reports good clinical benefit since [facility] on this (8) Third degree AV block: s/p pacemaker - possibly planning on upgrade due to cardiomyopathy per his Echo as above Outpt cards followup as above (9) Glaucoma: Continue his usual bimatoprost eye drops (10) Raynauds phenomenon: On no specific medications for this. No acute issues. (11) Seronegative arthritis: Flare 1 month ago which responded to prednisone Hydroxychloroquine continued, this can contribute to with hemoglobinemia however patient has tolerated this well in the past until the addition of Bactrim Plan VTE Prophylaxis - low risk, chemical prophylaxis deferred Diet - heart healthy Disposition - observation status to med/tele Total Time Total Time Spent Total Time Spent (In Minutes): Time spend day of discharge 45 minutes including direct patient care, documentation, review of labs and images, and coordination of care. Discharge Plan Discharge Items Patient Disposition: Home - Self-Care Reason For Visit: METHEMEGLOBINEMIA Discharge Diagnosis: Methemoglobinemia, likely 2/2 Bactrim + Dapsone Activity: Resume your previous activity Non-emergency contact: Primary Care Provider Call non-emergency contact if: you have any medication questions and your symptoms worsen Follow-up/Referrals: Duke Kaufman Jr, MD, [facility] [Physician] - (HFrEF followup, Specifically request Dr. Buchanan apptment, please call pt to confirm 09/07) Yuliet Ballesteros MD [Physician] - Diet: Regular Addtl Attending Provider Instructions: You are seen in the hospital for methemoglobinemia, likely causes a combination of dapsone and Bactrim. Your Bactrim has been stopped. Please stop taking Bactrim at this time. Your ear was evaluated during admission and showed no signs of purulence, erythema, pus, or infection. There was no tympanic membrane perforation or damage. You should not take Bactrim in the future while on Dapsone. Your case was discussed with dermatology. Please stop taking dapsone for the next 2 days, and then on 09/08 you may resume dapsone at a reduced dose (50 mg) for 1 week with additional recommendations to be made by your outpatient providers An ultrasound was performed of your heart due to concern for enlargement on chest x-ray and a history of reduced ejection fraction with ICD. The ultrasound of your heart showed a grossly normal left ventricle, moderate concentric LVH, lateral wall, anterior wall, apex, distractor lateral wall, and distal septum hypokinesis, normal RV size and function, ICD lead present in the right jesús tricle, mild aortic valve sclerosis without stenosis, and no pericardial effusion. Your EF was ~45%, this is slightly improved compared to your prior study in 05/2021 of 35-40%. Follow-up appointments are being scheduled for a with your primary care provider. Please call your infusion therapy nurse to make a follow-up appointment when you return home, you should be seen within 1 month. A follow-up appointment is being made with cardiology for follow-up of heart failure with reduced ejection fraction. An appointment has been requested with Dr. Zoda. You should receive a call to confirm this appointment in the next 48 hours, if you do not receive a call to confirm this appointment please call their office at [phone]. If you develop any new or worsening symptoms including fever, chills, sweats, chest pain, chest pressure, difficulty breathing, uncontrolled nausea/vomiting, rash, wheezing, passing out or nearly passing out, bleeding, black/bloody bowel movements, or other new or concerning symptoms please call your primary care physician, or call 911 for re-evaluation in the emergency department if you are very concerned. Pending Studies at Discharge: No Stand-Alone Forms: My [facility] [employer], Smoking Cessation Medications and DC Order Prescriptions: Continued hydroxychloroquine [Plaquenil] 200 mg tablet 200 mg PO HS Lumigan 0.01 % drops 1 drops OPB HS aspirin 81 mg Tablet,Delayed Release (Dr/Ec) 81 mg PO DAILY cyanocobalamin (vitamin B-12) [Vitamin B-12] 1,000 mcg Tablet 1,000 mcg PO QAM cholecalciferol (vitamin D3) [Vitamin D3] 50 mcg (2,000 unit) Capsule 50 mcg PO QAM Changed dapsone 25 mg tablet 50 mg PO HS Qty: 60 0RF Discharge Orders: Discharge Order (Routine); Ordered 09/06/21 Ordered By: Robbi Mark Admission Data Admit Date/Time: 09/04/21 16:51 Attending Provider: Robbi Mark Admit Provider: Florencio Osborne Primary Care Provider: Damon Goldberg Other Providers: Florencio Osborne Coding Level of Care Code D/C DAY MANAGEMENT >30 MINS Diagnoses Methemoglobinemia D74.9 Cardiomyopathy I42.0 Cardiomyopathy type: dilated Fatigue R53.83 Pancytopenia D61.818 Leukemia C95.90 Prostate cancer C61 Sweets syndrome L98.2 Third degree AV block I44.2 Glaucoma H40.9 Raynauds phenomenon I73.00 Seronegative arthritis M13.80
== END 2021-09-06 11:55 | disposition home or self-care (01) ==
LOC: 2W 11:36 → ED 11:36 → SUATTDRO 16:51 → 2W 21:34

== ENCOUNTER 2022-03-15 09:39 | Inpatient (IN) ==
[2022-03-15] MEDS ORDERED: dexAMETHasone**PF** 10 MG/ML VIAL IV ONE (09:44)
[2022-03-15] MEDS ORDERED: SODIUM CHLORIDE 0.9% 500 ML IV ONE (09:44)
--- NOTE | 2022-03-15 09:49 | Emergency Department Note ---
Impression & Plan Hypoxic, COVID-19 ED Provider Note NAME: DALIA MARTELL AGE: 81 SEX: M : 1940 ARRIVES VIA: Ambulance INFORMANT: Patient, EMS ED PROVIDER(S): Stuart Elise DO CHIEF COMPLAINT: shortness of breath and covid + HPI: Patient is an 81-year-old male who presents the ER for cough, congestion, and shortness of breath. He tested home on Tuesday was positive for COVID. He was brought in by EMS. He was found be hypoxic at 83%. He admits to chills and runny nose. Denies any belly pain, nausea, vomiting, or diarrhea. No dysuria, urgency, or frequency. Does have a history of cardiomyopathy, pacemaker, nonsustained VT as well as anemia and prostate cancer. No other exacerbating or remitting factors. PAST MEDICAL HISTORY:See Below PAST SURGICAL HISTORY:See Below FAMILY HISTORY:See Below SOCIAL HISTORY:See Below HOME MEDICATIONS:See Below ALLERGIES:See Below VITALS:See Below PHYSICAL EXAMINATION: GENERAL: Sitting up in bed, alert, Ill-appearing, disheveled, on 2 L nasal cannula EYE EXAM: normal conjunctiva. PERRL and EOM's grossly intact. OROPHARYNX: n mucous membranes are moist LUNGS: Diminished bilaterally. Normal chest wall mechanics HEART: no murmurs, S1 normal and S2 normal ABDOMEN: abdomen soft, non-tender, normo-active bowel sounds, no masses, no rebound or guarding. BACK: Back is symmetrical on inspection and there is no deformity, no midline tenderness, no CVA tenderness. SKIN: no rashes and no bruising UPPER EXTREMITIES: upper extremities are grossly normal. LOWER EXTREMITIES: No pitting edema. NEURO EXAM: Normal sensorium, cranial nerves II-XII grossly intact, normal speech, no gross weakness of arms, no gross weakness of legs. MEDICAL DECISION MAKING: Patient is an 17-year-old male who presents to the ER for shortness of breath brought in by EMS. EMS report was obtained by myself at bedside. He was hypoxic at 82 to 83% placed on 2 L nasal cannula and came up to 95%. He is positive for COVID. External records were reviewed. IV was established blood work was obtained. Labs show leukocytosis of 14,000. Mild anemia 11.2. Thrombocytopenia at 93 which is actually better than his previous. 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 BMP along with LFTs was unremarkable. Troponin was negative. Lipase was normal. COVID was positive. Chest x-ray without any focal infiltrate. He was placed on nasal cannula due to the hypoxia. He was updated at bedside. He was given IV steroids. Discussed with the hospitalist admitted for further work-up as I discussed with care management as well as Florencio Osborne and Clayton Romeo in regards to presentation work-up treatment and further management. Triage Nursing notes reviewed. Limited review of prior medical records performed Vital Signs: reviewed and remarkable for no significant abnormalities Differential diagnosis: Differential diagnoses includes but is not limited to pneumonia, bronchitis, COPD/Asthma exacerbation, pneumothorax, pulmonary embolism, congestive heart failure, acute coronary syndrome ER treatment provided: See below Diagnostics interpreted by me include EKG and cardiac monitoring as listed below: -Cardiac Monitoring: An order was placed for continuous cardiac monitoring. The monitor shows a rate of 92 with sinus rhythm. -ECG: Ventricular paced rate of 90 Left axis No PVCs QTC 570 -Laboratory studies:Interpreted by me as stated above in MDM and shown below. Imaging studies: Xrays: As interpreted by me: Portable AP upright 1 view per my read shows no focal infiltrate CTs show: none Consultation(s): Discussed with employment evaluator/case manager as well as Dr. 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 GARCIA MONITORS Prostate cancer Surgical History H/O craniotomy 1993 IN [facility] History of Achilles tendon repair Left-2019 History of anesthesia reaction PT NOTED TO HAVE A SMALL MOUTH/ CONCERNED ABOUT INTUBATION History of blepharoplasty BILATERAL History of cataract surgery LEFT History of colonoscopy History of discectomy LUMBAR History of herniorrhaphy History of mandibular surgery CYST ON LOWER JAW REMOVED 03/06/18 (BENIGN) History of oral surgery REMOVAL OF BROKEN TOOTH AND HAD A BONE GRAFT FOR A FUTURE IMPLANT. 07/04/18. ON ABX. History of permanent cardiac pacemaker placement 2005 History of prostatectomy History of tonsillectomy History of tooth extraction Family History Father FHx: lung cancer non-smoker Lung disease Mother Alzheimer disease Amyotrophic lateral sclerosis Other No family history of bleeding disorder Social History Smoking Status: Never smoker Second Hand Exposure: No; Hx Alcohol Use: Yes Alcohol type: beer, wine and hard liquor Alcohol Intake Frequency Comment: 1-2 drinks per month Hx Substance Use: No Preferred Language: Uzbek Communication Ability: Effective Visual Impairment: No Limitations Addiction Professional Required: No Beliefs That Will Affect Care: None Current Living Situation: Spouse current occupational status: retired Feels Safe at Home: Yes Assistive Devices: Glasses Allergies Allergies Allergy/AdvReac Type Severity Reaction Status Date / Time chlorhexidine Allergy Severe skin Verified 03/15/22 13:19 sloughing/JAMILA'S JESE SYNDROME leuprolide Allergy Intermediate LUPUS LIKE Verified 03/15/22 13:19 DERMATITIS zoster vaccine live Allergy Intermediate CONTRAINDIC Verified 03/15/22 13:19 ATED bendamustine AdvReac Mild ANEMIA Verified 03/15/22 13:19 sulfamethoxazole AdvReac Unknown Verified 03/15/22 13:19 [From Bactrim] trimethoprim [From Bactrim] AdvReac Unknown Verified 03/15/22 13:19 Home Meds Home Medications Medication Instructions Recorded Confirmed hydroxychloroquine 200 mg tablet 200 mg PO HS 04/11/19 03/15/22 (Plaquenil) bimatoprost 0.01 % eye drops 1 drops OPB HS 07/24/19 03/15/22 (Lumigan) cholecalciferol (vitamin D3) 50 50 mcg PO QAM 10/04/20 03/15/22 mcg (2,000 unit) capsule (Vitamin D3) cyanocobalamin (vitamin B-12) 1,000 mcg PO QAM 10/04/20 03/15/22 1,000 mcg tablet (Vitamin B-12) aspirin 81 mg tablet,delayed 81 mg PO DAILY 09/04/21 03/15/22 release Previous Rx's Medication Instructions Recorded dapsone 25 mg tablet 50 mg PO HS #60 tabs 09/06/21 Results & Data (ED) Vital Signs Vital Signs - 24 hr 03/15/22 09:43 03/15/22 09:43 03/15/22 09:43 Temperature 37.8 C H Temperature Source Oral Pulse Rate 89 Pulse Rate [Apical] Pulse Rhythm Regular Pulse Strength Normal Respiratory Rate 22 Respiratory Effort / Characteristics Non-Labored Spontaneous Non-Labored Spontaneous Respiratory Depth Normal Respiratory Pattern Regular Blood Pressure 154/77 H Blood Pressure [Left Arm] Blood Pressure Mean 102 Blood Pressure Mean [Left Arm] Blood Pressure Position Lying Pulse Oximetry 93 Oxygen Delivery Method Room Air Room Air Oxygen Flow Rate Sepsis Recent Fever Within 48 Hours Yes Sepsis New/Unexplained Change in Mental Status No Sepsis Action Taken by Nursing No Action Required Oxygen Flow Rate - Titration Pulse Oximetry Post Tiitration 03/15/22 09:50 03/15/22 09:49 03/15/22 11:07 Temperature Temperature Source Pulse Rate 82 Pulse Rate [Apical] 83 Pulse Rhythm Pulse Strength Respiratory Rate 24 Respiratory Effort / Characteristics Respiratory Depth Respiratory Pattern Blood Pressure Blood Pressure [Left Arm] 151/66 H Blood Pressure Mean Blood Pressure Mean [Left Arm] 94 Blood Pressure Position Pulse Oximetry 93 96 95 Oxygen Delivery Method Nasal Cannula Nasal Cannula Nasal Cannula Oxygen Flow Rate 0 2 2 Sepsis Recent Fever Within 48 Hours Sepsis New/Unexplained Change in Mental Status Sepsis Action Taken by Nursing Oxygen Flow Rate - Titration 2 Pulse Oximetry Post Tiitration 96 03/15/22 14:00 Temperature 36.8 C Temperature Source Oral Pulse Rate Pulse Rate [Apical] 81 Pulse Rhythm Pulse Strength Respiratory Rate 32 H Respiratory Effort / Characteristics Respiratory Depth Respiratory Pattern Blood Pressure Blood Pressure [Left Arm] 151/70 H Blood Pressure Mean Blood Pressure Mean [Left Arm] 97 Blood Pressure Position Pulse Oximetry 94 Oxygen Delivery Method Nasal Cannula Oxygen Flow Rate 3 Sepsis Recent Fever Within 48 Hours Sepsis New/Unexplained Change in Mental Status Sepsis Action Taken by Nursing Oxygen Flow Rate - Titration Pulse Oximetry Post Tiitration Laboratory Data 03/15/22 09:45 03/15/22 09:45 Lab Results 03/15/22 03/15/22 03/15/22 Range/Units 09:45 09:45 09:45 WBC 14.55 H (4.8-10.8) K/ul RBC 3.15 L (4.70-6.10) M/uL Hgb 11.2 L (14.0-18.0) g/dl Hct 33.3 L (42.0-52.0) % MCV 105.7 H (80.0-100.0) fL MCH 35.6 H (25.0-34.0) pg MCHC 33.6 (32.0-36.0) g/dL RDW Std Deviation 50.3 H (36.4-46.3) fL RDW Coeff of Cheyanne 13.1 (11.5-14.5) % Plt Count 93 L (130-400) K/uL MPV 9.3 L (9.4-12.4) fL Immature Gran % (Auto) 0.9 % Neut % (Auto) 86.7 % Lymph % (Auto) 5.9 % Hart % (Auto) 6.3 % Eos % (Auto) 0.1 % Baso % (Auto) 0.1 % Neut # (Auto) 12.61 H (1.40-6.50) K/uL Lymph # (Auto) 0.86 L (1.2-3.4) K/uL Hart # (Auto) 0.92 H (0.11-0.59) K/uL Eos # (Auto) 0.01 (0-0.50) K/uL Baso # (Auto) 0.02 (0-0.2) K/uL Immature Gran # (Auto) 0.13 (0.01-0.20) K/uL Dohle Bodies 1+ Polychromasia 1+ Methemoglobin (0.0-1.5) % Sodium 137 (136-145) mmol/L Potassium 4.2 (3.5-5.1) mmol/L Chloride 103 (98-107) mmol/L Carbon Dioxide 28 (21-32) mmol/L Anion Gap 6 (3-11) BUN 21 (6-23) mg/dl Creatinine 0.94 (0.6-1.4) mg/dl Est Cr Clr Drug Dosing 58.6 ml/min Est GFR ( Amer) 87.2 ml/min Est GFR (Non-Af Amer) 75.2 ml/min BUN/Creatinine Ratio 22.3 H (10-20) Glucose 103 H (70-99(Fasting)) mg/dl Calcium 9.1 (8.5-10.1) mg/dl Total Bilirubin 1.1 H (0.2-1.0) mg/dl AST 15 (13-39) U/L ALT 13 (7-52) U/L Alkaline Phosphatase 60 (34-104) U/L Troponin I High Sens 19.6 (0-20) pg/ml C-Reactive Protein 25.93 H (0-0.5) mg/dl Total Protein 7.8 (6.0-8.3) gm/dl Albumin 4.0 (3.4-5.0) gm/dl Globulin 3.8 (2.5-4.0) gm/dl Albumin/Globulin Ratio 1.1 (0.9-2) Lipase < 3 L (11-82) U/L Procalcitonin (0-0.5) ng/ml SARS-CoV-2 (PCR) (Negative) Influenza Type A (PCR) (Neg) Influenza Type B (PCR) (Neg) RSV (RT-PCR) (Neg) 03/15/22 03/15/22 03/15/22 Range/Units 09:45 10:00 12:59 WBC (4.8-10.8) K/ul RBC (4.70-6.10) M/uL Hgb (14.0-18.0) g/dl Hct (42.0-52.0) % MCV (80.0-100.0) fL MCH (25.0-34.0) pg MCHC (32.0-36.0) g/dL RDW Std Deviation (36.4-46.3) fL RDW Coeff of Cheyanne (11.5-14.5) % Plt Count (130-400) K/uL MPV (9.4-12.4) fL Immature Gran % (Auto) % Neut % (Auto) % Lymph % (Auto) % Hart % (Auto) % Eos % (Auto) % Baso % (Auto) % Neut # (Auto) (1.40-6.50) K/uL Lymph # (Auto) (1.2-3.4) K/uL Hart # (Auto) (0.11-0.59) K/uL Eos # (Auto) (0-0.50) K/uL Baso # (Auto) (0-0.2) K/uL Immature Gran # (Auto) (0.01-0.20) K/uL Dohle Bodies Polychromasia Methemoglobin < 0.7 (0.0-1.5) % Sodium (136-145) mmol/L Potassium (3.5-5.1) mmol/L Chloride (98-107) mmol/L Carbon Dioxide (21-32) mmol/L Anion Gap (3-11) BUN (6-23) mg/dl Creatinine (0.6-1.4) mg/dl Est Cr Clr Drug Dosing ml/min Est GFR ( Amer) ml/min Est GFR (Non-Af Amer) ml/min BUN/Creatinine Ratio (10-20) Glucose (70-99(Fasting)) mg/dl Calcium (8.5-10.1) mg/dl Total Bilirubin (0.2-1.0) mg/dl AST (13-39) U/L ALT (7-52) U/L Alkaline Phosphatase (34-104) U/L Troponin I High Sens (0-20) pg/ml C-Reactive Protein (0-0.5) mg/dl Total Protein (6.0-8.3) gm/dl Albumin (3.4-5.0) gm/dl Globulin (2.5-4.0) gm/dl Albumin/Globulin Ratio (0.9-2) Lipase (11-82) U/L Procalcitonin 0.32 (0-0.5) ng/ml SARS-CoV-2 (PCR) POSITIVE A* (Negative) Influenza Type A (PCR) Negative (Neg) Influenza Type B (PCR) Negative (Neg) RSV (RT-PCR) Negative (Neg) Administered Medications Discontinued Medications Dexamethasone Sodium Phosphate (DexamethasonePf 10 Mg/Ml Vial) 6 mg IV NOW ONE Stop: 03/15/22 09:45 Last Admin: 03/15/22 09:55 Dose: 6 mg Documented By: AP Furosemide (Furosemide 40 Mg/4 Ml Vial) 40 mg IV ONE ONE Stop: 03/15/22 13:20 Last Admin: 03/15/22 14:09 Dose: 40 mg Documented By: AMS Sodium Chloride (Nss) 500 mls @ 999 mls/hr IV .Q31M ONE Stop: 03/15/22 10:14 Last Infusion: 03/15/22 10:34 Dose: 0 mls/hr Documented By: Admin: 03/15/22 09:56 Dose: 999 mls/hr Documented By: AP Imaging Data Radiologist's Impression: Chest X-Ray 03/15/22 09:45 XR chest 1V portable HISTORY: Chest pain, nonspecific COMPARISON: Chest 09/04/2021. FINDINGS: No pneumothorax. No pleural effusions. There is left-sided dual- chamber pacemaker. The heart remains enlarged. A few bibasilar linear densities suggestive of subsegmental atelectasis. Otherwise, no focal lung consolidations to suggest a pneumonia. No evidence for pulmonary edema. Degenerative changes again noted within the shoulders. IMPRESSION: 1. Stable cardiomegaly. 2. A few bibasilar linear densities also persist and favor subsegmental atelectasis or scarring. ACT 112: Negative or not required by law. Electronically signed by: Arian Moore M.D. 03/15/2022 10:15 AM Discharge Plan Visit Data Chief Complaint: Shortness of Breath/Dyspnea Stated Complaint: HYPOXIA ED Provider: Stuart Elise Discharge Problem: Hypoxic, COVID-19 Forms Stand Alone Forms: My [facility] Prescriptions Prescriptions: No Action hydroxychloroquine [Plaquenil] 200 mg tablet 200 mg PO HS Lumigan 0.01 % drops 1 drops OPB HS aspirin 81 mg Tablet,Delayed Release (Dr/Ec) 81 mg PO DAILY dapsone 25 mg tablet 50 mg PO HS Qty: 60 0RF cyanocobalamin (vitamin B-12) [Vitamin B-12] 1,000 mcg Tablet 1,000 mcg PO QAM cholecalciferol (vitamin D3) [Vitamin D3] 50 mcg (2,000 unit) Capsule 50 mcg PO QAM Referrals Referrals: Ej Jenkins, [Primary Care Provider] -
[2022-03-15 10:12] LABS: Hematocrit (blood only) 33.3 % (42.0-52.0); Hemoglobin 11.2 g/dl (14.0-18.0); Mean Corpuscular Hemoglobin 35.6 pg (25.0-34.0); Mean Corpuscular Hgb Conc 33.6 g/dL (32.0-36.0); Mean Corpuscular Volume 105.7 fL (80.0-100.0); Mean Platelet Volume 9.3 fL (9.4-12.4); Platelet Count 93 K/uL (130-400); RDW Coefficient of Variation 13.1 % (11.5-14.5); RDW Standard Deviation 50.3 fL (36.4-46.3); Red Blood Count 3.15 M/uL (4.70-6.10); White Blood Count 14.55 K/ul (4.8-10.8)
--- NOTE | 2022-03-15 10:16 | XRay Report ---
XR chest 1V portable HISTORY: Chest pain, nonspecific COMPARISON: Chest 09/04/2021. FINDINGS: No pneumothorax. No pleural effusions. There is left-sided dual-chamber pacemaker. The hear t remains enlarged. A few bibasilar linear densities suggestive of subsegmental atelectasis. Otherwis e, no focal lung consolidations to suggest a pneumonia. No evidence for pulmonary edema. Degenerative changes again noted within the shoulders. IMPRESSION: 1. Stable cardiomegaly. 2. A few bibasilar linear densities also persist and favor subsegmental atelectasis or scarring. ACT 112: Negative or not required by law. Electronically signed by: Arian Moore M.D. 03/15/2022 10:15 AM
[2022-03-15 10:29] LABS: Basophils # (auto) 0.02 K/uL (0-0.2); Basophils % (auto) 0.1 %; Dohle Bodies 1+; Eosinophils # (auto) 0.01 K/uL (0-0.50); Eosinophils % (auto) 0.1 %; Immature Granulocytes # (auto) 0.13 K/uL (0.01-0.20); Immature Granulocytes % (auto) 0.9 %; Lymphocytes # (auto) 0.86 K/uL (1.2-3.4); Lymphocytes % (auto) 5.9 %; Monocytes # (auto) 0.92 K/uL (0.11-0.59); Monocytes % (auto) 6.3 %; Neutrophils # (auto) 12.61 K/uL (1.40-6.50); Neutrophils % (auto) 86.7 %; Polychromasia 1+
[2022-03-15 10:30] LABS: Troponin I High Sensitivity 19.6 pg/ml (0-20)
[2022-03-15 10:35] LABS: Anion Gap 6 (3-11); Bilirubin,Total 1.1 mg/dl (0.2-1.0); Calcium 9.1 mg/dl (8.5-10.1); Carbon Dioxide 28 mmol/L (21-32); Chloride 103 mmol/L (98-107); Potassium 4.2 mmol/L (3.5-5.1); Sodium 137 mmol/L (136-145)
[2022-03-15 10:41] LABS: BUN Creatinine Ratio 22.3 (10-20); Blood Urea Nitrogen 21 mg/dl (6-23); Creatinine Clr Calc Pharmacy 58.6 ml/min; Est GFR (African American) 87.2 ml/min; Est GFR (Non-African American) 75.2 ml/min; Glucose 103 mg/dl (70-99(Fasting))
[2022-03-15 10:51] LABS: Influenza A virus by PCR Negative (Neg); Influenza B virus by PCR Negative (Neg); RSV by PCR Negative (Neg)
[2022-03-15 10:55] LABS: Alanine Aminotransferase 13 U/L (7-52); Albumin Globulin Ratio 1.1 (0.9-2); Alkaline Phosphatase 60 U/L (34-104); Aspartate Aminotransferase 15 U/L (13-39); Globulin 3.8 gm/dl (2.5-4.0); Lipase < 3 U/L (11-82); Total Protein 7.8 gm/dl (6.0-8.3)
[2022-03-15 11:21] LABS: SARS CoV2 RNA(COVID-19) Ceph POSITIVE (Negative)
--- NOTE | 2022-03-15 12:15 | Electrocardiogram Report ---
Test Reason : Blood Pressure : / mmHG Vent. Rate : 090 BPM Atrial Rate : 090 BPM P-R Int : 000 ms QRS Dur : 198 ms QT Int : 466 ms P-R-T Axes : 087 -72 106 degrees QTc Int : 570 ms Ventricular-paced rhythm Abnormal ECG When compared with ECG of 04-SEP-2021 12:06, Vent. rate has increased BY 22 BPM Confirmed by Ej Montanez ([id number]) on 03/15/2022 12:15:13 PM Referred By: Confirmed By:Ej Montanez
--- NOTE | 2022-03-15 12:17 | History & Physical Report ---
Date of Service March 15, 2022 Assessment & Plan (1) Hypoxemia: Plan: Most likely secondary to positive COVID-19 Continue supplemental oxygen to maintain SaO2 greater than 90% Continue treat underlying COVID-19 infection No previous pulmonary disease. No prior use of supplemental oxygen. (2) COVID-19: Plan: Symptoms started 2 days prior to admission Chest x-ray with no evidence of multifocal pneumonia Patient started on dexamethasone 6 mg IV. We will continue this daily per protocol Patient received 1 dose of Paxlovid as an outpatient. We will start patient on remdesivir per protocol. LFTs within normal limits. We will follow serial LFTs and will need to hold remdesivir if those increase GFR is within normal limits. Admit for monitoring and placed on airborne isolation per protocol (3) Chronic lymphocytic leukemia: Plan: Has not been treated for several years. Monitored as an outpatient with oncology (4) Primary prostate cancer identified by needle biopsy (T1c): Plan: Treated in 2017. No current issues. Continue to follow with outpatient urology (5) Sensorineural hearing loss (SNHL) of both ears: Plan: Patient has no difficulty with hearing with normal speech pattern and volume by this provider (6) Cardiomyopathy: Plan: Most recent echocardiogram shows ejection fraction of 35 to 40%. Patient does follow with Dr. Hunt No prior history of diuretic use Will monitor on telemetry secondary to COVID-19 infection Patient does have cardiac pacemaker (7) Glaucoma: Plan: Continue with usual home medications (8) Seronegative arthritis: Plan: Patient does take Plaquenil for methemoglobinemia. We will hold this at this time pending lab levels Patient denies any current arthritic symptoms of joint pain Follow symptomatically (9) Raynauds phenomenon: Plan: No current issues. 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 Osborne's addendum for further recommendations and corrections History of Present Illness Chief Complaint: Shortness of breath with hypoxia, COVID-19 positive Primary Care Provider: Ej Jenkins DO Attending: Dr. Florencio Osborne This is an 81-year-old male that presents with shortness of breath and found to be hypoxic prehospital with an SaO2 of 83 to 85%. He was placed on supplemental oxygen and now has adequate SaO2 above 90%. Patient has an xi vated WBC of 14.55. Troponin is within normal limits at 19.6. Patient does have a past medical history including dermatosis, seronegative arthritis, Raynaud's, glaucoma, CLL, history of prostate cancer, cardiac pacemaker, cardiomyopathy, anemia, and chronic hearing loss secondary to dysfunction of eustachian tubes as well as sense of serial hearing loss of both ears. Patient does have history of methemoglobinemia and does take Plaquenil as well as dapsone. He has had flares in the past with elevated levels and his is very concerned that acute illness may continue to flare. Patient's is at home and has COVID. She has been sick for the last 6 days. She was concerned with the patient's presentation so she tested him with a home test on Tuesday. At that time he was positive for COVID-19. Oxygenation levels were above 90% until this morning when checked SaO2 when he was found to be 83%. She called EMS and patient was transferred to the emergency department via ambulance. During transport he was also found to be between 83 and 85% and placed on supplemental oxygen via nasal cannula. PCR testing to the hospital was positive for COVID-19. Serology was negative for influenza A, influenza B, RSV. Patient has no chest pain or tightness. He is vaccinated for COVID with Pfizer x3 injections and Moderna x1 with his most recent booster being June 2021. Patient does have considerable amount of rhonchi and phlegm but he is having difficulty expectorating. Chest x-ray reviewed and no multifocal pneumonia is identified. No significant edema. Patient currently has a pacemaker and is rate controlled. Patient has a history of methemoglobinemia and is currently on Plaquenil as well as dapsone. 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 She asked that these medications be held until methemoglobin level is returned. 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 Patient has not received chemotherapy for several years. He does follow with oncology on a regular basis. Platelet count currently is 93,000. Hemoglobin is 11.2. Patient is a lifelong non-smoker. He has not had previous pulmonary disease and has never required supplemental oxygen. Allergies Allergy/AdvReac Type Severity Reaction Status Date / Time chlorhexidine Allergy Severe skin Verified 03/15/22 13:19 sloughing/JAMILA'S JESE SYNDROME leuprolide Allergy Intermediate LUPUS LIKE Verified 03/15/22 13:19 DERMATITIS zoster vaccine live Allergy Intermediate CONTRAINDIC Verified 03/15/22 13:19 ATED bendamustine AdvReac Mild ANEMIA Verified 03/15/22 13:19 sulfamethoxazole AdvReac Unknown Verified 03/15/22 13:19 [From Bactrim] trimethoprim [From Bactrim] AdvReac Unknown Verified 03/15/22 13:19 Home Medications Medication Instructions Recorded Confirmed Type hydroxychloroquine 200 mg tablet 200 mg PO HS 04/11/19 03/15/22 History (Plaquenil) bimatoprost 0.01 % eye drops 1 drops OPB HS 07/24/19 03/15/22 History (Lumigan) cholecalciferol (vitamin D3) 50 50 mcg PO QAM 10/04/20 03/15/22 History mcg (2,000 unit) capsule (Vitamin D3) cyanocobalamin (vitamin B-12) 1,000 mcg PO QAM 10/04/20 03/15/22 History 1,000 mcg tablet (Vitamin B-12) aspirin 81 mg tablet,delayed 81 mg PO DAILY 09/04/21 03/15/22 History release dapsone 25 mg tablet 50 mg PO HS #60 tabs 09/06/21 03/15/22 Rx Past Med/Surg History Medical History (Updated 03/15/22 @ 15:07 by Stuart Elise DO) Anemia AVM (arteriovenous malformation) brain 1993 SURGERY AT [facility] BPH (benign prostatic hyperplasia) COVID-19 Fatigue Glaucoma BEING MONITORED Irregular heart beat Leukemia CLL>CHEMO IN THE PAST (BEING MONITORED CURRENTLY) PROSTATE CANCER SKIN CANCER Pacemaker 2005 DR. GARCIA MONITORS Prostate cancer Surgical History H/O craniotomy 1993 IN [place] History of Achilles tendon repair Left-2019 History of anesthesia reaction PT NOTED TO HAVE A SMALL MOUTH/ CONCERNED ABOUT INTUBATION History of blepharoplasty BILATERAL History of cataract surgery LEFT History of colonoscopy History of discectomy LUMBAR History of herniorrhaphy History of mandibular surgery CYST ON LOWER JAW REMOVED 03/06/18 (BENIGN) History of oral surgery REMOVAL OF BROKEN TOOTH AND HAD A BONE GRAFT FOR A FUTURE IMPLANT. 07/04/18. ON ABX. 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 No bronchospasm. HEART: Regular, rate controlled ABDOMEN: Soft, NT, ND, BS Present EXTREMITIES: No LE edema, pedal pulses intact NEURO: A&OX3 Results & Data Results & Data ([facility]) Vital Signs (Past 12 Hours) Vital Signs Temp Pulse Pulse Resp BP BP Pulse Ox 03/15/22 11:07 83 24 151/66 H 95 03/15/22 09:49 82 96 03/15/22 09:50 93 03/15/22 09:43 03/15/22 09:43 37.8 C H 89 22 154/77 H 93 O2 Del Method O2 Flow Rate 03/15/22 11:07 Nasal Cannula 2 03/15/22 09:49 Nasal Cannula 2 03/15/22 09:50 Nasal Cannula 0 03/15/22 09:43 Room Air 03/15/22 09:43 Room Air Critical Care Results & Data Vital Signs (Past 12 Hours) Vital Signs Temp Pulse Pulse Resp BP BP Pulse Ox 03/15/22 11:07 83 24 151/66 H 95 03/15/22 09:49 82 96 03/15/22 09:50 93 03/15/22 09:43 03/15/22 09:43 37.8 C H 89 22 154/77 H 93 O2 Del Method O2 Flow Rate 03/15/22 11:07 Nasal Cannula 2 03/15/22 09:49 Nasal Cannula 2 03/15/22 09:50 Nasal Cannula 0 03/15/22 09:43 Room Air 03/15/22 09:43 Room Air Lab & Micro Results (Past 24 Hours) RBC 3.39 M/uL (4.70-6.10) L 03/16/22 WBC 8.23 K/ul (4.8-10.8) 03/16/22 Hgb 11.8 g/dl (14.0-18.0) L 03/16/22 Hct 34.8 % (42.0-52.0) L 03/16/22 MCV 102.7 fL (80.0-100.0) H 03/16/22 MCH 34.8 pg (25.0-34.0) H 03/16/22 MCHC 33.9 g/dL (32.0-36.0) 03/16/22 RDW Standard Deviation 47.5 fL (36.4-46.3) H 03/16/22 RDW Coefficient of Variation 12.6 % (11.5-14.5) 03/16/22 Plt Count 100 K/uL (130-400) L 03/16/22 MPV 9.7 fL (9.4-12.4) 03/16/22 Na 137 mmol/L (136-145) 03/16/22 K 3.9 mmol/L (3.5-5.1) 03/16/22 Cl 101 mmol/L (98-107) 03/16/22 CO2 29 mmol/L (21-32) 03/16/22 Anion Gap 7 (3-11) 03/16/22 BUN 29 mg/dl (6-23) H 03/16/22 Creatinine 0.82 mg/dl (0.6-1.4) 03/16/22 Estimated GFR ( Amer) 95.4 ml/min 03/16/22 Estimated GFR (Non-Af Amer) 82.4 ml/min 03/16/22 BUN/Creatinine Ratio 35.4 (10-20) H 03/16/22 Glu 173 mg/dl (70-99(Fasting)) H 03/16/22 Ca 9.7 mg/dl (8.5-10.1) 03/16/22 Total Bilirubin 0.6 mg/dl (0.2-1.0) 03/16/22 Direct Bilirubin 0.1 mg/dl (0-0.2) 03/16/22 AST 13 U/L (13-39) 03/16/22 ALT 11 U/L (7-52) 03/16/22 Alkaline Phosphatase 56 U/L (34-104) 03/16/22 TP 7.8 gm/dl (6.0-8.3) 03/16/22 Albumin 3.9 gm/dl (3.4-5.0) 03/16/22 Calcium Level 9.7 mg/dl (8.5-10.1) 03/16/22 07:22 Diagnostic Findings (Past 24 Hours) Chest X-Ray 03/15/22 09:45 XR chest 1V portable HISTORY: Chest pain, nonspecific COMPARISON: Chest 09/04/2021. FINDINGS: No pneumothorax. No pleural effusions. There is left-sided dual- chamber pacemaker. The heart remains enlarged. A few bibasilar linear densities suggestive of subsegmental atelectasis. Otherwise, no focal lung consolidations to suggest a pneumonia. No evidence for pulmonary edema. Degenerative changes again noted within the shoulders. IMPRESSION: 1. Stable cardiomegaly. 2. A few bibasilar linear densities also persist and favor subsegmental atel ectasis or scarring. ACT 112: Negative or not required by law. Electronically signed by: Arian Moore M.D. 03/15/2022 10:15 AM I & O Totals 24 Hours 03/14/22 03/15/22 03/16/22 06:59 06:59 06:59 Intake Total 500 / 500 Balance 500 / 500 Cumulative 03/15/22 09:27 thru 03/15/22 10:34 Intake Total 500 Balance 500 RT Ventilator Mngmt (Last Documented) Ventilator Ordered Settings Respiratory Rate 24 03/15/22 11:07 Ventilator - PT Measurements Respiratory Rate 24 Code Status & VTE Plan Code Status Full resuscitation Level I Supervising Physician Co-Signing Physician Notes I personally saw and examined the patient. I verified all yung points and agree with Clayton Kroner, PA-C with the following exceptions and/or additions: 81 year old male presents to the ER with shortness of breath and hypoxia. has COVID-19. Tested positive for SARS-COV-2 PCR in ER. Previously on Paxlovid. On day 3 of illness. Vaccinated and boosted but never had COVID-19 prior to this. O/E HS RRR, no murmurs, Chest extensive rhonchi b/l but with good air entry b/l, Abdo SNT, no pitting edema A/P COVID-19 - Remdesivir (will hold Plaquenil while on this as it reduces the effectiveness), Dexamethasone. D/C Paxlovid in favor of remdesivir Hypoxia - suspect a lot of his hypoxia is due to excessive mucus, incentive spirometer and flutter valve ordered History of methemoglobinemia - Value now normal, continue dapsone PG Care Time/CCT Total # of Minutes Spent Total Time Spent with Patient: Total time spent is greater than 50% in coordination of care (as documented) at patient's floor/unit and/or counseling patient: Coding Level of Care Code 39889 INT INP/OBS CARE 3/75MIN Diagnoses Hypoxemia R09.02 COVID-19 U07.1 Chronic lymphocytic leukemia C91.10 Primary prostate cancer identified by needle biopsy (T1c) C61 Sensorineural hearing loss (SNHL) of both ears H90.3 Cardiomyopathy I42.0 Cardiomyopathy type: dilated Glaucoma H40.9 Seronegative arthritis M13.80 Raynauds phenomenon I73.00 Acquired methemoglobinemia D74.8 (1) Cardiomyopathy Cardiomyopathy type: dilated Qualified Code(s): I42.0 - Dilated cardiomyopathy
[2022-03-15] MEDS ORDERED: FUROSEMIDE 40 MG/4 ML VIAL IV ONE (13:19)
[2022-03-15] MEDS ORDERED: MAGNESIUM HYDROXIDE SUSP 30 ML UDC PO PRN (15:51)
[2022-03-15] MEDS ORDERED: GLUCOSE 40% GEL 15 GM TUBE PO PRN (15:51)
[2022-03-15] MEDS ORDERED: GLUCAGON FOR INJ 1 MG VIAL SQ PRN (15:51)
[2022-03-15] MEDS ORDERED: ONDANSETRON INJ 2 MG/ML 2 ML VIAL IV PRN (15:51)
[2022-03-15] MEDS ORDERED: CARBOHYDRATES FOR HYPOGLYCEMIA PO PRN (15:51)
[2022-03-15] MEDS ORDERED: ALUMINUM/MAGNESIUM SUSP 30 ML UDC PO PRN (15:51)
[2022-03-15] MEDS ORDERED: GLUCOSE 10 TAB/TUBE PO PRN (15:51)
[2022-03-15] MEDS ORDERED: ACETAMINOPHEN 325 MG TAB PO PRN (15:51)
[2022-03-15] MEDS ORDERED: DEXTROSE 50% 50 ML SYRINGE IV PRN (15:51)
[2022-03-15] MEDS ORDERED: POLYETHYLENE (MIRALAX) 17 GM PACK PO PRN (15:51)
[2022-03-15] MEDS ORDERED: REMDESIVIR 200 MG in SODIUM CHLORIDE 0.9% 210 ML IV STA (15:56)
[2022-03-15] MEDS ORDERED: INSULIN ASPART PER UNIT SC SCH (16:30)
[2022-03-15] MEDS: dexAMETHasone 6 MG in SYRINGE 0 ML IV SCH (17:04)
[2022-03-15] MEDS: DAPSONE 25 MG TAB PO SCH (20:40)
[2022-03-15] MEDS: BIMATOPROST 0.01% OP SOLN 2.5 ML BTL OP SCH (20:40)
--- NOTE | 2022-03-16 07:28 | XRay Report ---
XR chest 1V portable CLINICAL HISTORY: Covid infection with hypoxia COMPARISON STUDY: Chest CT October 04, 2020 and chest radiograph March 15, 2022. FINDINGS: Left subclavian pacer is in place. There is cardiomegaly without evidence for pulmonary raquel ma. Skin folds project over the right chest. Left basilar opacity is noted. This could reflect consol idation or atelectasis. There may also be minimal left suprahilar opacity. Linear right basilar opaci ty reflects atelectasis. There is no pneumothorax or pleural effusion. IMPRESSION: 1. Left lung airspace opacities which favor an infectious etiology. Radiographic follow-up to ensure resolution is recommended. 2. Cardiomegaly without evidence for pulmonary edema. ACT 112: Negative or not required by law. Electronically signed by: Cruzito Miller M.D. 03/16/2022 7:26 AM
[2022-03-16] MEDS: ASPIRIN 81 MG ECTAB PO SCH (07:54)
[2022-03-16] MEDS: CHOLECALCIFEROL 1,000 UNITS 25 MCG TAB PO SCH (07:55)
[2022-03-16] MEDS: CYANOCOBALAMIN (B-12) 500 MCG TABLET PO SCH (07:55)
[2022-03-16 08:03] LABS: Hematocrit (blood only) 34.8 % (42.0-52.0); Hemoglobin 11.8 g/dl (14.0-18.0); Mean Corpuscular Hemoglobin 34.8 pg (25.0-34.0); Mean Corpuscular Hgb Conc 33.9 g/dL (32.0-36.0); Mean Corpuscular Volume 102.7 fL (80.0-100.0); Mean Platelet Volume 9.7 fL (9.4-12.4); Platelet Count 100 K/uL (130-400); RDW Coefficient of Variation 12.6 % (11.5-14.5); RDW Standard Deviation 47.5 fL (36.4-46.3); Red Blood Count 3.39 M/uL (4.70-6.10); White Blood Count 8.23 K/ul (4.8-10.8)
[2022-03-16 08:19] LABS: Bilirubin,Total 0.6 mg/dl (0.2-1.0)
[2022-03-16] MEDS: guaiFENesin 600 MG TABCR PO SCH ×2 (10:08→20:12)
[2022-03-16 11:31] LABS: Albumin Level 3.9 gm/dl (3.4-5.0); BUN Creatinine Ratio 35.4 (10-20); Bilirubin Direct 0.1 mg/dl (0-0.2); Calcium 9.7 mg/dl (8.5-10.1); Creatinine Clr Calc Pharmacy 66.9 ml/min; Est GFR (African American) 95.4 ml/min; Est GFR (Non-African American) 82.4 ml/min; Potassium 3.9 mmol/L (3.5-5.1); Total Protein 7.8 gm/dl (6.0-8.3)
[2022-03-16] MEDS: REMDESIVIR 100 MG in SODIUM CHLORIDE 0.9% 230 ML IV SCH (12:06)
[2022-03-16 13:36] LABS: C Reactive Protein 30.27 mg/dl (0-0.5)
[2022-03-16] MEDS: dexAMETHasone 6 MG in SYRINGE 0 ML IV SCH (16:04)
[2022-03-16] MEDS: cefTRIAXone SODIUM 1,000 MG in DEXTROSE 5% AD-VAN 50 ML IV SCH (16:09)
[2022-03-16] MEDS ORDERED: DOXYCYCLINE HYCLATE 100 MG in DEXTROSE 5% 100 ML IV SCH (17:00)
[2022-03-16] MEDS: DAPSONE 25 MG TAB PO SCH (20:12)
[2022-03-16] MEDS: BIMATOPROST 0.01% OP SOLN 2.5 ML BTL OP SCH (20:12)
--- NOTE | 2022-03-16 20:34 | Hospitalist Progress Note ---
Date of Service March 16, 2022 Assessment & Plan (1) Hypoxemia: Plan: ACUTE HYPOXIC RESP FAILURE - documented O2 sats in the low 80s at home, 89% here, and RRs ~30 upon presentation. 2nd COVID-19 pneumonia. see below. (2) Pneumonia due to COVID-19 virus: Plan: day #2 of Remdesivir day #2 of Dexamethasone 6mg daily incentive valorie flutter valve mucinex due to very high CRP and purulent sputum production could have secondary bacterial infection thus, add rocephin IV daily send sputum cx doxycycline theoretically can cause methemoglobinemia thus defer on atypical coverage for now cont airborne isolation repeat labs including CRP am (3) Chronic lymphocytic leukemia: Plan: Has not been treated for several years. Monitored as an outpatient with oncology. Cell lines acceptable. Platelets are low but appear chronically low. CBC in am for stability. (4) Primary prostate cancer identified by needle biopsy (T1c): Plan: Treated in 2017. No current issues. Continue to follow with outpatient urology. (5) Sensorineural hearing loss (SNHL) of both ears: (6) Cardiomyopathy: Plan: Chronic systolic CHF - compensated CXR without edema or effusions Most recent echocardiogram shows ejection fraction of 35 to 40%. Patient does follow with Dr. Hunt No prior history of diuretic use Will monitor on telemetry secondary to such Patient does have cardiac pacemaker as well (7) Glaucoma: Plan: Continue with usual home medications (8) Seronegative arthritis: Plan: Patient does take Plaquenil for such. [facility] no Flare at this time Remdesivir apparently renders plaquenil less effective thus reasonable to hold for now as he will be on steroids and chances of flare are very low (9) Raynauds phenomenon: Plan: noted (10) Acquired methemoglobinemia: Plan: Both plaquenil and dapsone can cause such but these are chronic meds and he has been tolerating them. Methemoglobin level is undetectable. 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 viral infections can trigger flares of Sweets the rash should respond rapidly to the IV dex for the COVID infection serial exams repeat CRP am (12) DVT prophylaxis: Plan: add lovenox in am if platelets are stable Plan pt's extensively updated by phone this evening order PT/OT shante Admission and Anticipated Discharge Date Admission Date: March 15, 2022 Subjective patient states he continues with cough and sputum production but denies dyspnea at rest and [place] no chest pain no pleuritic pain eating ok denies sinus symptoms no nausea/emesis/diarrhea does have active Sweet's syndrome skin lesions on face, upper chest/back is recovering from COVID at home he is only about 3 days into his illness course tele overnight wnl Review of Systems Review of Systems: gen - no chills; some fatigue cv - no orthopnea pulm - no wheezing GI - no vomiting Physical Exam Physical Exam: gen - ill appearing but nontoxic, no distress mouth - MMM neck - no JVD heart - RRR, s1 s2 lungs - bibasilar rales, fine; no wheeze; no increased work of breathing abd - soft NT ND BS+ ext - pulses 2+ b/l skin - erythematous plaques and large papules on face/neck/upper back psych - a/o x 3 Results & Data Results & Data ([facility]) Vital Signs (Past 12 Hours) Vital Signs Temp Pulse Pulse Resp BP Pulse Ox O2 Del Method 03/16/22 19:27 36.5 C 62 18 133/71 96 Nasal Cannula 03/16/22 17:34 36.4 C L 65 163/73 H 98 Nasal Cannula 03/16/22 14:39 61 03/16/22 11:47 36.6 C 60 14 130/67 95 Nasal Cannula 03/16/22 09:58 Nasal Cannula O2 Flow Rate 03/16/22 19:27 3 03/16/22 17:34 2 03/16/22 14:39 03/16/22 11:47 2.5 03/16/22 09:58 3 Laboratory Results Laboratory Results - last 24 hr 03/16/22 03/16/22 03/16/22 07:22 07:22 07:22 WBC 8.23 RBC 3.39 L Hgb 11.8 L Hct 34.8 L MCV 102.7 H MCH 34.8 H MCHC 33.9 RDW Std Deviation 47.5 H RDW Coeff of Cheyanne 12.6 Plt Count 100 L MPV 9.7 Sodium 137 Potassium 3.9 Chloride 101 Carbon Dioxide 29 Anion Gap 7 BUN 29 H Creatinine 0.82 Est Cr Clr Drug Dosing 66.9 Est GFR ( Amer) 95.4 Est GFR (Non-Af Amer) 82.4 BUN/Creatinine Ratio 35.4 H Glucose 173 H Calcium 9.7 Total Bilirubin 0.6 D Direct Bilirubin 0.1 AST 13 ALT 11 Alkaline Phosphatase 56 C-Reactive Protein 30.27 H Total Protein 7.8 Albumin 3.9 Procalcitonin 0.29 PG Care Time/CCT Total # of Minutes Spent Total Time Spent with Patient: Total time spent is greater than 50% in coordination of care (as documented) at patient's floor/unit and/or counseling patient: Coding Level of Care Code 95246 SUB INP/OBS CARE 3/50MIN Diagnoses Hypoxemia R09.02 Pneumonia due to COVID-19 virus U07.1; J12.82 Chronic lymphocytic leukemia C91.10 Primary prostate cancer identified by needle biopsy (T1c) C61 Sensorineural hearing loss (SNHL) of both ears H90.3 Cardiomyopathy I42.0 Cardiomyopathy type: dilated Glaucoma H40.9 Seronegative arthritis M13.80 Raynauds phenomenon I73.00 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 (1) Cardiomyopathy Cardiomyopathy type: dilated Qualified Code(s): I42.0 - Dilated cardiomyopathy
[2022-03-17 07:06] LABS: Hematocrit (blood only) 29.9 % (42.0-52.0); Hemoglobin 10.1 g/dl (14.0-18.0); Mean Corpuscular Hemoglobin 34.5 pg (25.0-34.0); Mean Corpuscular Hgb Conc 33.8 g/dL (32.0-36.0); Mean Platelet Volume 9.4 fL (9.4-12.4); Platelet Count 156 K/uL (130-400); RDW Coefficient of Variation 12.4 % (11.5-14.5); RDW Standard Deviation 47.4 fL (36.4-46.3); Red Blood Count 2.93 M/uL (4.70-6.10); White Blood Count 8.43 K/ul (4.8-10.8)
[2022-03-17 07:21] LABS: BUN Creatinine Ratio 43.2 (10-20); Calcium 9.5 mg/dl (8.5-10.1); Creatinine Clr Calc Pharmacy 74.1 ml/min; Est GFR (African American) 99.6 ml/min; Est GFR (Non-African American) 85.9 ml/min; Potassium 4.3 mmol/L (3.5-5.1)
[2022-03-17 08:05] LABS: Estimated Average Glucose 80 mg/dl; Hemoglobin A1C 4.4 % (4.5-5.6)
[2022-03-17] MEDS: CHOLECALCIFEROL 1,000 UNITS 25 MCG TAB PO SCH (08:50)
[2022-03-17] MEDS: ENOXAPARIN INJ 40 MG/0.4 ML SYR SQ SCH (08:50)
[2022-03-17] MEDS: CYANOCOBALAMIN (B-12) 500 MCG TABLET PO SCH (08:50)
[2022-03-17] MEDS: guaiFENesin 600 MG TABCR PO SCH ×2 (08:50→19:39)
[2022-03-17] MEDS: ASPIRIN 81 MG ECTAB PO SCH (08:50)
[2022-03-17 09:17] LABS: C Reactive Protein 12.85 mg/dl (0-0.5)
[2022-03-17] MEDS: REMDESIVIR 100 MG in SODIUM CHLORIDE 0.9% 230 ML IV SCH (11:52)
[2022-03-17] MEDS: dexAMETHasone 6 MG in SYRINGE 0 ML IV SCH (16:01)
[2022-03-17] MEDS: cefTRIAXone SODIUM 1,000 MG in DEXTROSE 5% AD-VAN 50 ML IV SCH (16:02)
[2022-03-17] MEDS: BIMATOPROST 0.01% OP SOLN 2.5 ML BTL OP SCH (19:38)
[2022-03-17] MEDS: DAPSONE 25 MG TAB PO SCH (19:39)
[2022-03-17] MEDS: MELATONIN 3 MG TAB PO SCH (19:42)
[2022-03-17] MEDS ORDERED: MELATONIN 3 MG TAB PO ONE (19:42)
--- NOTE | 2022-03-17 20:38 | Hospitalist Progress Note ---
Date of Service March 17, 2022 Assessment & Plan (1) Hypoxemia: Plan: ACUTE HYPOXIC RESP FAILURE - documented O2 sats in the low 80s at home, 89% here, and RRs ~30 upon presentation. 2nd COVID-19 pneumonia. resolved. I took his O2 off during the visit; sats stayed 95% or more thereafter. (2) Pneumonia due to COVID-19 virus: Plan: day #3 of Remdesivir day #3 of Dexamethasone 6mg daily incentive valorie flutter valve mucinex due to very high CRP and purulent sputum production could have secondary bacterial infection thus, cont rocephin IV daily - day #2 sent sputum cx doxycycline theoretically can cause methemoglobinemia thus defer on atypical coverage for now cont airborne isolation repeat labs including CRP am CRP with excellent improvement; 30 --> 12 (3) Chronic lymphocytic leukemia: Plan: Has not been treated for several years. Monitored as an outpatient with oncology. Cell lines remain acceptable. CBC in am for stability. (4) Primary prostate cancer identified by needle biopsy (T1c): Plan: Treated in 2017. No current issues. Continue to follow with outpatient urology. (5) Sensorineural hearing loss (SNHL) of both ears: (6) Cardiomyopathy: Plan: Chronic systolic CHF - remains compensated CXR without edema or effusions Most recent echocardiogram shows ejection fraction of 35 to 40%. Patient does follow with Dr. Hunt No prior history of diuretic use (7) Glaucoma: Plan: Continue with usual home medications (8) Seronegative arthritis: Plan: Patient does take Plaquenil for such. 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 Methemoglobin level is undetectable. 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 viral infections can trigger flares of Sweets the rash should respond rapidly to the IV dex for the COVID infection CRP indeed has improved from 30 to 12 in 24 hours lesions look better today repeat CRP am (12) DVT prophylaxis: Plan: cont lovenox daily Plan pt's extensively updated by phone this evening passed PT/OT shante d/c next 1-2 days progressing nicely Admission and Anticipated Discharge Date Admission Date: March 15, 2022 Subjective patient feeling better cough improved still with sputum, but not as much some sputum with tinge of blood no chest pain or pleuritic pain no dyspnea at rest no WILLIAMSON no orthopnea good appetite NSR on monitor Review of Systems Review of Systems: gen - no fevers or chills; fatigue improved cv - no PND, no edema GI - no N/V/D - no LUTS pulm - no dyspnea or wheezing Physical Exam Physical Exam: gen - looks good today, NAD mouth - MMM neck - no JVD heart - RRR, s1 s2, no murmur lungs - mild L basilar rales, scant rales R base, otherwise CTA b/l and good air movement abd - soft NT ND BS+ ext - pulses 2+ b/l skin - erythematous plaques and large papules on face/neck/upper back IMPROVED today/less in number psych - a/o x 3 Results & Data Results & Data ([facility]) Vital Signs (Past 12 Hours) Vital Signs Temp Pulse Pulse Resp BP Pulse Ox O2 Del Method 03/17/22 19:44 36.6 C 59 L 18 128/71 93 Nasal Cannula 03/17/22 15:32 64 03/17/22 15:26 36.5 C 70 16 137/68 96 Nasal Cannula 03/17/22 11:53 36.5 C 76 20 142/75 H 96 Nasal Cannula 03/17/22 08:45 Nasal Cannula O2 Flow Rate 03/17/22 19:44 1 03/17/22 15:32 03/17/22 15:26 1 03/17/22 11:53 2 03/17/22 08:45 3 Laboratory Results Laboratory Results - last 24 hr 03/17/22 03/17/22 03/17/22 05:54 05:54 06:07 WBC 8.43 RBC 2.93 L Hgb 10.1 L Hct 29.9 L MCV 102.0 H MCH 34.5 H MCHC 33.8 RDW Std Deviation 47.4 H RDW Coeff of [place] 12.4 Plt Count 156 D MPV 9.4 Sodium 134 L Potassium 4.3 Chloride 104 Carbon Dioxide 23 Anion Gap 7 BUN 32 H Creatinine 0.74 Est Cr Clr Drug Dosing 74.1 Est GFR ( Amer) 99.6 Est GFR (Non-Af Amer) 85.9 BUN/Creatinine Ratio 43.2 H Glucose 150 H Estimat Average Glucose 80 Hemoglobin A1c 4.4 L Calcium 9.5 Total Bilirubin Cancelled Direct Bilirubin Cancelled AST 14 ALT 10 Alkaline Phosphatase Cancelled C-Reactive Protein 12.85 H Total Protein Cancelled Albumin Cancelled 03/17/22 06:07 WBC RBC Hgb Hct MCV MCH MCHC RDW Std Deviation RDW Coeff of [place] Plt Count MPV Sodium Potassium Chloride Carbon Dioxide Anion Gap BUN Creatinine Est Cr Clr Drug Dosing Est GFR ( Amer) Est GFR (Non-Af Amer) BUN/Creatinine Ratio Glucose Estimat Average Glucose Hemoglobin A1c Calcium Total Bilirubin Direct Bilirubin AST ALT Alkaline Phosphatase C-Reactive Protein Cancelled Total Protein Albumin Diagnostic Findings sputum cx pending but thus far negative PG Care Time/CCT Total # of Minutes Spent Total Time Spent with Patient: Total time spent is greater than 50% in coordination of care (as documented) at patient's floor/unit and/or counseling patient: Coding Level of Care Code 49053 SUB INP/OBS CARE 235MIN Diagnoses Hypoxemia R09.02 Pneumonia due to COVID-19 virus U07.1; J12.82 Chronic lymphocytic leukemia C91.10 Primary prostate cancer identified by needle biopsy (T1c) C61 Sensorineural hearing loss (SNHL) of both ears H90.3 Cardiomyopathy I42.0 Cardiomyopathy type: dilated Glaucoma H40.9 Seronegative arthritis M13.80 Raynauds phenomenon I73.00 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 (1) Cardiomyopathy Cardiomyopathy type: dilated Qualified Code(s): I42.0 - Dilated cardiomyopathy
[2022-03-18 08:23] LABS: Hematocrit (blood only) 33.4 % (42.0-52.0); Hemoglobin 10.9 g/dl (14.0-18.0); Mean Corpuscular Hemoglobin 34.3 pg (25.0-34.0); Mean Corpuscular Hgb Conc 32.6 g/dL (32.0-36.0); Mean Platelet Volume 9.2 fL (9.4-12.4); Platelet Count 166 K/uL (130-400); RDW Coefficient of Variation 12.6 % (11.5-14.5); RDW Standard Deviation 49.2 fL (36.4-46.3); Red Blood Count 3.18 M/uL (4.70-6.10); White Blood Count 4.92 K/ul (4.8-10.8)
[2022-03-18] MEDS: guaiFENesin 600 MG TABCR PO SCH ×2 (09:08→23:08)
[2022-03-18] MEDS: ENOXAPARIN INJ 40 MG/0.4 ML SYR SQ SCH (09:08)
[2022-03-18] MEDS: ASPIRIN 81 MG ECTAB PO SCH (09:08)
[2022-03-18] MEDS: CHOLECALCIFEROL 1,000 UNITS 25 MCG TAB PO SCH (09:08)
[2022-03-18] MEDS: CYANOCOBALAMIN (B-12) 500 MCG TABLET PO SCH (09:09)
[2022-03-18 11:27] LABS: BUN Creatinine Ratio 38.8 (10-20); C Reactive Protein 5.47 mg/dl (0-0.5); Calcium 9.7 mg/dl (8.5-10.1); Creatinine Clr Calc Pharmacy 64.8 ml/min; Est GFR (Non-African American) 81.1 ml/min; Potassium 4.3 mmol/L (3.5-5.1)
[2022-03-18] MEDS: REMDESIVIR 100 MG in SODIUM CHLORIDE 0.9% 230 ML IV SCH (11:48)
[2022-03-18] MEDS: dexAMETHasone 6 MG in SYRINGE 0 ML IV SCH (16:10)
[2022-03-18] MEDS: cefTRIAXone SODIUM 1,000 MG in DEXTROSE 5% AD-VAN 50 ML IV SCH (16:10)
[2022-03-18] MEDS: MELATONIN 3 MG TAB PO SCH (21:50)
[2022-03-18] MEDS: BIMATOPROST 0.01% OP SOLN 2.5 ML BTL OP SCH (21:51)
--- NOTE | 2022-03-18 22:08 | Hospitalist Progress Note ---
Date of Service March 18, 2022 Assessment & Plan (1) Hypoxemia: Plan: ACUTE HYPOXIC RESP FAILURE - documented O2 sats in the low 80s at home, 89% here, and RRs ~30 upon presentation. 2nd COVID-19 pneumonia. resolved. Off O2 24+ hours. (2) Pneumonia due to COVID-19 virus: Plan: improving nicely day #4 of Remdesivir day #4 of Dexamethasone 6mg daily incentive valorie flutter valve mucinex due to very high CRP and purulent sputum production could have secondary bacterial infection thus, cont rocephin IV daily - day #3 doxycycline theoretically can cause methemoglobinemia thus defer on atypical coverage for now sputum cx negative cont airborne isolation CRP with excellent improvement; 30 --> 12 --> 5 (3) Chronic lymphocytic leukemia: Plan: Has not been treated for several years. Monitored as an outpatient with oncology. Cell lines remain acceptable. CBC remains stable. (4) Primary prostate cancer identified by needle biopsy (T1c): Plan: Treated in 2017. No current issues. Continue to follow with outpatient urology. (5) Sensorineural hearing loss (SNHL) of both ears: (6) Cardiomyopathy: Plan: Chronic systolic CHF - remains compensated CXR without edema or effusions Most recent echocardiogram shows ejection fraction of 35 to 40%. Patient does follow with Dr. Hunt No prior history of diuretic use (7) Glaucoma: Plan: Continue with usual home medications (8) Seronegative arthritis: Plan: Patient does take Plaquenil for such. 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 Methemoglobin level is undetectable. 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 viral infections can trigger flares of Sweets he has mild flare but the rash responded rapidly to the IV dexamethasone CRP indeed has improved from 30 to 12 to 5 (12) DVT prophylaxis: Plan: cont lovenox daily Plan pt's extensively updated by phone yesterday evening passed PT/OT brettals d/c home tomorrow Admission and Anticipated Discharge Date Admission Date: March 15, 2022 Subjective patient feeling quite good today no dyspnea at rest or with activity cough improved sputum improved scant streaks of blood ambulating easily eating well tele wnl overnight Review of Systems Review of Systems: gen - no fevers or chills cv - no cp, no orthopnea, no edema pulm - no wheezing GI - no abd pain or n/v Physical Exam Physical Exam: gen - looks very good today, NAD mouth - MMM neck - no JVD heart - RRR, s1 s2, no murmur lungs - minimal L basilar rales, otherwise CTA b/l and good air movement ; no wheezes abd - soft NT ND BS+ ext - pulses 2+ b/l skin - erythematous plaques and large papules on face/neck/upper back nearly resolved psych - a/o x 3 Results & Data Results & Data ([facility]) Vital Signs (Past 12 Hours) Vital Signs Temp Pulse Pulse Pulse Pulse Resp Resp 03/18/22 19:40 36.6 C 86 16 03/18/22 19:16 36.6 C 108 H 16 03/18/22 15:45 36.4 C L 75 18 03/18/22 11:30 36.8 C 85 18 03/18/22 16:03 82 80 70 19 03/18/22 10:09 Resp Resp BP Pulse Ox Pulse Ox Pulse Ox Pulse Ox 03/18/22 19:40 148/69 H 92 03/18/22 19:16 148/69 H 92 03/18/22 15:45 142/68 H 94 03/18/22 11:30 155/68 H 95 03/18/22 16:03 18 18 93 93 93 03/18/22 10:09 O2 Del Method 03/18/22 19:40 Room Air 03/18/22 19:16 Room Air 03/18/22 15:45 Room Air 03/18/22 11:30 Room Air 03/18/22 16:03 03/18/22 10:09 Room Air Laboratory Results Laboratory Results - last 24 hr 03/18/22 03/18/22 07:44 07:44 WBC 4.92 RBC 3.18 L Hgb 10.9 L Hct 33.4 L MCV 105.0 H MCH 34.3 H MCHC 32.6 RDW Std Deviation 49.2 H RDW Coeff of [place] 12.6 Plt Count 166 MPV 9.2 L Sodium 135 L Potassium 4.3 Chloride 103 Carbon Dioxide 27 Anion Gap 5 BUN 33 H Creatinine 0.85 Est Cr Clr Drug Dosing 64.8 Est GFR ( Amer) 94.0 Est GFR (Non-Af Amer) 81.1 BUN/Creatinine Ratio 38.8 H Glucose 136 H Calcium 9.7 C-Reactive Protein 5.47 H PG Care Time/CCT Total # of Minutes Spent Total Time Spent with Patient: Total time spent is greater than 50% in coordination of care (as documented) at patient's floor/unit and/or counseling patient: Coding Level of Care Code 87012 SUB INP/OBS CARE 2/35MIN Diagnoses Hypoxemia R09.02 Pneumonia due to COVID-19 virus U07.1; J12.82 Chronic lymphocytic leukemia C91.10 Primary prostate cancer identified by needle biopsy (T1c) C61 Sensorineural hearing loss (SNHL) of both ears H90.3 Cardiomyopathy I42.0 Cardiomyopathy type: dilated Glaucoma H40.9 Seronegative arthritis M13.80 Raynauds phenomenon I73.00 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 (1) Cardiomyopathy Cardiomyopathy type: dilated Qualified Code(s): I42.0 - Dilated cardiomyopath y
[2022-03-18] MEDS: DAPSONE 25 MG TAB PO SCH (23:08)
[2022-03-19] MEDS: CYANOCOBALAMIN (B-12) 500 MCG TABLET PO SCH (08:19)
[2022-03-19] MEDS: ENOXAPARIN INJ 40 MG/0.4 ML SYR SQ SCH (08:19)
[2022-03-19] MEDS: CHOLECALCIFEROL 1,000 UNITS 25 MCG TAB PO SCH (08:19)
[2022-03-19] MEDS: ASPIRIN 81 MG ECTAB PO SCH (08:19)
[2022-03-19] MEDS: guaiFENesin 600 MG TABCR PO SCH (08:19)
[2022-03-19 09:23] LABS: BUN Creatinine Ratio 31.3 (10-20); Creatinine Clr Calc Pharmacy 49.2 ml/min; Est GFR (African American) 70.5 ml/min; Est GFR (Non-African American) 60.8 ml/min; Potassium 4.3 mmol/L (3.5-5.1)
[2022-03-19] MEDS: REMDESIVIR 100 MG in SODIUM CHLORIDE 0.9% 230 ML IV SCH (11:32)
[2022-03-19 12:38] LABS: Calcium 9.7 mg/dl (8.5-10.1)
[2022-03-19] MEDS: dexAMETHasone 6 MG in SYRINGE 0 ML IV SCH (13:31)
[2022-03-19] MEDS: cefTRIAXone SODIUM 1,000 MG in DEXTROSE 5% AD-VAN 50 ML IV SCH (13:31)
--- NOTE | 2022-03-19 13:45 | Discharge Summary ---
Date of Service March 19, 2022 Admission HPI Per Admitting Provider Attending: Dr. Florencio Osborne This is an 81-year-old male that presents with shortness of breath and found to be hypoxic prehospital with an SaO2 of 83 to 85%. He was placed on supplemental oxygen and now has adequate SaO2 above 90%. Patient has an elevated WBC of 14.55. Troponin is within normal limits at 19.6. Patient does have a past medical history including dermatosis, seronegative arthritis, Raynaud's, glaucoma, CLL, history of prostate cancer, cardiac pacemaker, cardiomyopathy, anemia, and chronic hearing loss secondary to dysfunction of eustachian tubes as well as sense of serial hearing loss of both ears. Patient does have history of methemoglobinemia and does take Plaquenil as well as dapsone. He has had flares in the past with elevated levels and his is very concerned that acute illness may continue to flare. Patient's is at home and has COVID. She has been sick for the last 6 days. She was concerned with the patient's presentation so she tested him with a home test on Tuesday. At that time he was positive for COVID-19. Oxygenation levels were above 90% until this morning when checked SaO2 when he was found to be 83%. She called EMS and patient was transferred to the emergency department via ambulance. During transport he was also found to be between 83 and 85% and placed on supplemental oxygen via nasal cannula. PCR testing to the hospital was positive for COVID-19. Serology was negative for influenza A, influenza B, RSV. Patient has no chest pain or tightness. He is vaccinated for COVID with Pfizer x3 injections and [employer] x1 with his most recent booster being June 2021. Patient does have considerable amount of rhonchi and phlegm but he is having difficulty expectorating. Chest x-ray reviewed and no multifocal pneumonia is identified. No significant edema. Patient currently has a pacemaker and is rate controlled. Patient has a history of methemoglobinemia and is currently on Plaquenil as well as dapsone. 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 She asked that these medications be held until methemoglobin level is returned. 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 Patient has not received chemotherapy for several years. He does follow with oncology on a regular basis. Platelet count currently is 93,000. Hemoglobin is 11.2. Patient is a lifelong non-smoker. He has not had previous pulmonary disease and has never required supplemental oxygen. Discharge Exam gen - looks very good today, NAD mouth - MMM neck - no JVD heart - RRR, s1 s2, no murmur lungs - minimal L basilar rales, otherwise CTA b/l and good air movement ; no wheezes abd - soft NT ND BS+ ext - pulses 2+ b/l skin - erythematous plaques and large papules on face/neck/upper back nearly resolved psych - a/o x 3 Discharge Data Allergies Allergy/AdvReac Type Severity Reaction Status Date / Time chlorhexidine Allergy Severe skin Verified 03/15/22 13:19 sloughing/JAMILA'S JESE SYNDROME leuprolide Allergy Intermediate LUPUS LIKE Verified 03/15/22 13:19 DERMATITIS zoster vaccine live Allergy Intermediate CONTRAINDIC Verified 03/15/22 13:19 ATED bendamustine AdvReac Mild ANEMIA Verified 03/15/22 13:19 sulfamethoxazole AdvReac Unknown Verified 03/15/22 13:19 [From Bactrim] trimethoprim [From Bactrim] AdvReac Unknown Verified 03/15/22 13:19 Consultations 03/15/22 11:08 ED Decision to Admit Stat Hospital Course (1) Hypoxemia: ACUTE HYPOXIC RESP FAILURE - documented O2 sats in the low 80s at home, 89% here, and RRs ~30 upon presentation. 2nd COVID-19 pneumonia. resolved. Off O2 24+ hours. (2) Pneumonia due to COVID-19 virus: improving nicely day #4 of Remdesivir day #4 of Dexamethasone 6mg daily incentive valorie flutter valve mucinex due to very high CRP and purulent sputum production could have secondary bacterial infection thus, cont rocephin IV daily - day #3 doxycycline theoretically can cause methemoglobinemia thus defer on atypical coverage for now sputum cx negative cont airborne isolation CRP with excellent improvement; 30 --> 12 --> 5 (3) Chronic lymphocytic leukemia: Has not been treated for several years. Monitored as an outpatient with oncology. Cell lines remain acceptable. CBC remains stable. (4) Primary prostate cancer identified by needle biopsy (T1c): Treated in 2017. No current issues. Continue to follow with outpatient urology. (5) Sensorineural hearing loss (SNHL) of both ears: (6) Cardiomyopathy: Chronic systolic CHF - remains compensated CXR without edema or effusions Most recent echocardiogram shows ejection fraction of 35 to 40%. Patient does follow with Dr. Hunt No prior history of diuretic use (7) Glaucoma: Continue with usual home medications (8) Seronegative arthritis: Patient does take Plaquenil for such. 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 Methemoglobin level is undetectable. 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 COVID-19 Pneumonia - resolving 2. Sweets Syndrome 3. Seronegative arthritis 4. CLL 5. h/o methemoglobinemia 6. h/o cardiomyopathy Activity: As commented below Activity Comment: gradually increase activities over the next 7-10 days Exercise/Sports: Wait until after follow-up appointment Driving/Machine Use: When your isolation period has completed Non-emergency contact: Primary Care Provider Call non-emergency contact if: you have any medication questions, your symptoms worsen and you have a fever Follow-up/Referrals: Ej Jenkins, [Primary Care Provider] - (5-7 days, even if it is a virtual/telehealth appointment) Diet: Heart Healthy Addtl Attending Provider Instructions: Mr Kimble, You were hospitalized for COVID-19 pneumonia. This was the cause of your low oxygen levels that you saw at your house. You did require oxygen for a period of time here and this was successfully weaned off. You improved nicely with steroids, Remdesivir anti-viral treatment, antibiotics, and other supportive care. Your walking oxygen test on 03/18/22 was normal. This means that you do not require oxygen at home. You likely will have another 1-2 weeks of recovery ahead at home. Fatigue and lingering cough are the most common symptoms people experience during their recoveries. It is important to rest and heal during this time period. Don't over do it; gradually increase your activities over the next 1-2 weeks. Since you still have a fairly prominent cough with sputum production I would recommend a total of 10 days of isolation. The first day of that period was when your illness started (March 14). Thus, you can end your isolation period late Tuesday night into Tuesday morning. During your isolation time plan to just rest & take it easy at home. If visitors come to your house please mask diligently, and they should mask as well. The sputum production should gradually end over the next few days. Recommendations - 1. dexamethasone steroid - 6mg once daily with food x 5 days beginning tomorrow, 03/20/22. This is for your COVID pneumonia. On occasion steroids can lead to fluid retention in people who have cardiomyopathy. Please watch for fluid retention (check your feet/ankles daily, check your weight daily for weight gains of more than 2-3 pounds in 1-2 days, etc). 2. antibiotics - in the event you had bacterial infection in addition to the COVID virus please take - * cefdinir 300mg twice daily x 3 days, first dose AM of 03/20/22 3. for cough may take [id number] mucinex up to 1200mg twice daily as needed or as desired 4. please check your oxygen level with your oximeter once or twice a day over the next few days. If your oxygen levels are consistently over 90% these are acceptable. 5. continue your flutter valve a few times a day over the next few days. 6. OK to resume your plaquenil on 03/20/22. 7. OK to continue your dapsone TODAY. 8. To reduce the chances of developing a DVT blood clot in your legs during your recovery please consider increasing your aspirin 81mg to twice a day for 4- 6 weeks. Your risk for blood clots is likely higher due to some of your medical conditions (seronegative arthritis, etc). 9. follow-up - see your family doctor in 5-7 days Return to [facility] if - * you develop recurrent fevers over 100 degrees * you develop severe diarrhea * you have worsening shortness of breath * your pulse ox readings on your finger are consistently less than 90% * you have chest pains * any other concerns It was our pleasure caring for you! Please continue to feel better, Florencio Sims Pending Studies at Discharge: No Stand-Alone Forms: My [facility], Smoking Cessation Medications and DC Order Prescriptions: New dexamethasone 6 mg tablet 6 mg PO DAILY 5 Days Qty: 5 0RF Rx Instructions: first dose on 03/20/22. cefdinir 300 mg capsule 300 mg PO BID 3 Days Qty: 6 0RF Rx Instructions: first dose AM of 03/20/22. Continued hydroxychloroquine [Plaquenil] 200 mg tablet 200 mg PO HS Lumigan 0.01 % drops 1 drops OPB HS dapsone 25 mg tablet 50 mg PO HS Qty: 60 0RF cyanocobalamin (vitamin B-12) [Vitamin B-12] 1,000 mcg Tablet 1,000 mcg PO QAM cholecalciferol (vitamin D3) [Vitamin D3] 50 mcg (2,000 unit) Capsule 50 mcg PO QAM Changed aspirin 81 mg Tablet,Delayed Release (Dr/Ec) 81 mg PO BID Qty: 60 0RF Discharge Orders: Discharge Order (Routine); Ordered 03/19/22 Ordered By: Florencio Sims Admission Data Admit Date/Time: 03/15/22 13:19 Attending Provider: Florencio Sims Admit Provider: Florencio Osborne Primary Care Provider: Ej Jenkins Other Providers: Florencio Osborne Other Interventions: Discharge Summary Assessment (RN) Last Done: 03/19/22 13:41 Coding Diagnoses Hypoxemia R09.02 Pneumonia due to COVID-19 virus U07.1; J12.82 Chronic lymphocytic leukemia C91.10 Primary prostate cancer identified by needle biopsy (T1c) C61 Sensorineural hearing loss (SNHL) of both ears H90.3 Cardiomyopathy I42.0 Cardiomyopathy type: dilated Glaucoma H40.9 Seronegative arthritis M13.80 Raynauds phenomenon I73.00 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
== END 2022-03-19 15:55 | disposition home or self-care (01) | DRG 177 ==
LOC: ED 09:39 → 2W 13:19 → SUATTDRO 13:19 → 2W 15:32

== ENCOUNTER 2022-08-24 11:49 | Observation (INO) ==
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
[2022-08-24] MEDS ORDERED: LIDOCAINE 1% LOCAL 20 ML VIAL ONE (12:41)
[2022-08-24] MEDS ORDERED: WATER, STERILE FOR INJ 10 ML VIAL ONE (12:41)
[2022-08-24] MEDS ORDERED: VANCOMYCIN HCL 1000MG/20ML VIAL ONE (12:42)
--- NOTE | 2022-08-24 12:43 | Pre Anesthesia Assessment ---
Date of Service August 24, 2022 Pre Sedation Assessment Vital Signs Pulse Resp BP Pulse Ox O2 Del Method 08/24/22 12:15 60 18 147/64 H 95 Room Air Cardiovascular RRR, no murmur, no edema Respiratory normal respiratory effort, lungs clear to auscultation Pre-Sedation Airway Assessment Smoking Status: Never smoker Hx Sleep Apnea: No Hx Difficult Intubation: No Short, Thick Neck: No Thyromental Distance: > or= 3.5 Finger Breadths Oral Cavity: + WNL Mallampati Class: III ASA: ASA3 NPO Status Date of Last Intake of Fluids: 08/24/22 Time of Last Intake of Fluids: 07:00 Date of Last Intake of Solid Food: 08/23/22 Time of Last Intake of Solid Foods: 21:00 Procedure Planning Contraindications for Sedation: none Current Medications Reviewed: Yes Notes The planned sedation has been discussed with the patient. Informed Consent was obtained. I have identified the patient, determined the appropriateness of sedation and have assessed the patient immediately prior to the procedure. All medicine(s) and interventions are by my order.
[2022-08-24] MEDS ORDERED: MIDAZOLAM HCL 5 MG/ML 1 ML VIAL ONE (13:03)
[2022-08-24] MEDS ORDERED: fentaNYL citrate PF 100 MCG/2 ML VIAL ONE (13:03)
[2022-08-24] MEDS ORDERED: ceFAZolin 330 MG/ML 1 GM VIAL ONE (13:07)
[2022-08-24] MEDS ORDERED: BACITRACIN OINT 0.9 GM PKT ONE (14:19)
[2022-08-24] MEDS ORDERED: ACETAMINOPHEN 325 MG TAB PO PRN (15:06)
[2022-08-24] MEDS ORDERED: ACETAMINOPHEN W/CODEINE #3 1 TAB PO PRN (15:06)
--- NOTE | 2022-08-24 15:15 | Electrophysiology Report ---
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 After identification in the laboratory the patient was prepped and draped in the standard sterile manner for a left-sided device upgrade to biventricular. Dye was injected the left arm IV site to opacify the left subclavian vein. The subclavian vein was identified and found to be free of obstruction. An area 2 cm below the left clavicle was anesthetized with 1% lidocaine local anesthetic and left subclavian puncture was performed by percutaneous technique. A guidewire was placed through the left subclavian vein into the right atrium. A [place] coronary sinus sheath was advanced over the guidewire into the right atrium. Using an inner guiding catheter the coronary sinus was identified and accessed. The Moshe sheath could not be advanced into the coronary sinus therefore the guiding catheter was used to subselect a good coronary sinus branch and dye was injected in various projections to opacify the coronary sinus branch. Once a good branch was identified a 0.014 inch guidewire was advanced to position and the vessel and a quadripolar coronary sinus lead was advanced over the guidewire into good distal position. Pacing and sensing were evaluated in various configurations through the lead, diaphragmatic pacing was tested and was not present. Details are noted on the implant data sheet. Once the coronary sinus lead was in position the sheath system was stripped from the lead, the lead was attached to the pectoralis fashion using 1 suture of 2-0 silk around the lead collar. The left prepectoral region at the site of the chronic pacemaker was anesthetized with 1% lidocaine local anesthetic and once adequate anesthesia was obtained a 5 cm incision was made through the old implant scar and carried down to the pacemaker generator. The generator was dissected free of tissue and explanted. A vancomycin-soaked sponge was placed in the pocket. This incision was approximately 5 cm below the incision for coronary sinus lead placement therefore the coronary sinus lead was tunneled to the pacemaker pocket. Another suture of 2-0 silk was placed around the coronary sinus lead collar to attach it to the pectoralis fascia. The chronic pacemaker was removed from the leads. A new pacemaker was attached to the chronic atrial and right ventricular leads and the new coronary sinus lead and found to be functioning normally. The vancomycin soaked sponge was removed from the pocket, the pacemaker was placed in the pocket with the leads coiled beneath it. The pocket was enlarged slightly in the inferior direction to accommodate the larger device. The pacemaker incision and the lead access incision were closed with a running double subcutaneous closure of 3-0 Vicryl absorbable suture followed by a running subcuticular skin closure of 4-0 Vicryl absorbable suture. Bacitracin ointment was placed on the incisions and a dressing applied. [facility] Electrophysiology codes Indication for Procedure (1) Nonischemic cardiomyopathy: (2) Cardiac pacemaker: Pacing Procedure 1: Pacin Dual Pacemaker replacement Procedure 2: Pacin BiV electrode only - stand alone procedure Miscellaneous Procedures Procedure 1: EP Miscellaneous: 26844-27 Vengraphy, extremity Procedure 2: EP Miscellaneous: 44385 Contrast injection for venography Procedure 3: EP Miscellaneous: 60141-29 Venography, CS supevsion/interp PG Moderate Sedation Codes Moderate Sedation Codes Procedure 1: Sedation/Anesthesia: 15101 Mod Sedation by the same physician;Init15 Min Child Age 5 & Up Procedure 2: Sedation/Anesthesia: 54348 Mod Sedation by the same physician; Ea [id number] Minutes
--- NOTE | 2022-08-24 15:43 | Post Anesthesia Assessment ---
Date of Service August 24, 2022 Post Sedation Assessment Vital Signs Pulse Resp BP Pulse Ox O2 Del Method 08/24/22 15:15 60 14 127/67 95 Room Air 08/24/22 14:59 60 14 129/72 95 Room Air 08/24/22 12:15 60 18 147/64 H 95 Room Air Recovery Score Activity: Moves 4 extremities Respiration: Deep Breath/Cough Circulation: +/-20% PreAnes Value Consciousness: Fully Awake Oxygen Saturation: > 92% On Room Air Post Anesthesia Score: 10 Discharge Sedation Level of Care: Fast Track Phase II Post Sedation Plan On clinical assessment, the patient appears to have tolerated the sedation wi thout complications. Patient is recovering as anticipated. Patient will continue to be monitored by nursing and may be discharged when sedation discharge criteria are met per below protocol. Upon Completions of procedure up to 15 minutes continue every 5 minute vital signs and the P.A.R. score; then discharge to a Phase I or Fast Track to Phase II per the following guidelines: * Discharge Patient to appropriate Phase II area if PAR is 8 or greater or return to pre- procedure baseline. The post - procedure orders will be as directed. * If PAR score is less than 8 or not return to pre-procedure baseline then patient will follow Phase I monitoring till PAR is reached for Phase II. The Phase I may be done in procedure room or may call to secure a Phase I area. * If naloxone or flumazenil are used for reversal, hold in Phase I for continued monitoring from when last reversal dose was given for a minimum of 60 minutes or longer pending the nurse and/or physician discretion of patient condition before discharge to Phase II. Please call the Sedation Physician to re-evaluate and complete post-note for discharge to Phase II area. Do NOT discharge from procedure sedation or Phase 1 until post- sedation evaluation note is complete by procedure /sedation MD Sedation Discharge Instructions to be given to the patient at discharge to home.
--- NOTE | 2022-08-24 18:06 | Electrocardiogram Report ---
Test Reason : Blood Pressure : / mmHG Vent. Rate : 060 BPM Atrial Rate : 060 BPM P-R Int : 128 ms QRS Dur : 154 ms QT Int : 522 ms P-R-T Axes : 000 -70 209 degrees QTc Int : 522 ms AV sequential pacing When compared with ECG of 15-MAR-2022 09:46, Electronic atrial pacemaker has replaced Electronic ventricular pacemaker Vent. rate has decreased BY 30 BPM Confirmed by Rufino Wilson ([id number]) on 08/24/2022 6:05:36 PM Referred By: Martin Hunt Confirmed By:Presley Wilson
[2022-08-24] MEDS ORDERED: BIMATOPROST 0.01% OP SOLN 2.5 ML BTL OP SCH (21:00)
[2022-08-24] MEDS ORDERED: HYDROXYCHLOROQUINE SULFATE 200 MG TAB PO SCH (21:00)
[2022-08-24] MEDS: DAPSONE 25 MG TAB PO SCH ×2 (21:10→21:29)
--- NOTE | 2022-08-25 07:54 | Cardiology Progress Note ---
Date of Service August 25, 2022 Assessment & Plan (1) Status post placement of cardiac pacemaker: Plan The pacemaker is working well, thresholds are good, chest x-ray shows good lead position and no pneumothorax. The incision is healing well. Stable for discharge today. Admission and Anticipated Discharge Date Admission Date: August 24, 2022 Subjective He is feeling well today, he has only been walking in the room but feels good doing that and has no significant incisional discomfort. He has no shortness of breath and no chest discomfort. Physical Exam Physical Exam: The incisions are clean and dry, no ecchymosis, no swelling. Incisions dressed. Cardiac rhythm is regular with no rub Lungs are clear Results & Data Vital Signs (Past 12 Hours) Vital Signs Temp Pulse Resp BP Pulse Ox O2 Del Method 08/25/22 03:13 36.9 C 60 18 111/61 93 Room Air 08/24/22 23:18 36.6 C 59 L 20 112/65 92 Room Air Diagnostic Findings Post OP ECG: AV pacing with good morphology Telemetry: Appropriate pacemaker function. CXR: Good lead position, no pneumothorax Pacer evaluation: Good pacing and sensing characteristics in the LV lead. PG Care Time/CCT Total # of Minutes Spent Total Time Spent with Patient: Total time spent is greater than 50% in coordination of care (as documented) at patient's floor/unit and/or counseling patient: Coding Level of Care Code 47380 Post Operative Follow-Up Diagnoses Status post placement of cardiac pacemaker Z95.0 CPT Codes Dual Lead Pacemaker System - [id number] ([id number])
--- NOTE | 2022-08-25 08:48 | XRay Report ---
XR chest 2V PA/lateral CLINICAL HISTORY: EXACT TIME ORDERED Evaluate for pneumothorax and l TECHNIQUE: 2 views of the chest were obtained. Comparison: Comparison is made to chest radiograph 06/28/2022 FINDINGS: Dual lead pacemaker is seen. Interval placement of a new lead is noted. Calcified aortic knob is seen . The lungs are clear. No evidence of pleural effusion or pneumothorax. IMPRESSION: Interval placement of new pacemaker lead with no evidence of pneumothorax. ACT 112: Negative or not required by law. Electronically signed by: Adrien Hunter M.D. 08/25/2022 8:46 AM
[2022-08-25] MEDS ORDERED: CHOLECALCIFEROL 1,000 UNITS 25 MCG TAB PO SCH (09:00)
[2022-08-25] MEDS ORDERED: CYANOCOBALAMIN (B-12) 500 MCG TABLET PO SCH (09:00)
[2022-08-25] MEDS ORDERED: ASPIRIN 81 MG ECTAB PO SCH (09:00)
== END 2022-08-25 13:26 | disposition home or self-care (01) ==
LOC: 4W 11:49 → EP 11:49